=== PATIENT | male | born 1960 | race Caucasian/White ===

== ENCOUNTER → 2016-04-11 | Outpatient (CLI) | payer BC ==
[~2016-04-11] VITALS: Ht 177.8 cm; Wt 108.9 kg
[~2016-04-11] MED LIST: ALLOPURINOL 10100 M1 PO; AMBIEN 10 MG TA10 MG PO; ANDROGEL1.25 GM TOP; B-100 COMPLEX1 EAC1 PO; BACLOFEN 10MG T10 MG PO; BYSTOLIC 5 MG5 M1 PO; BYSTOLIC10 MG PO; CELEBREX 200 M200 M1 PO; CLONAZEPAM 1 MG1 M1 PO; CLONAZEPAM PO; CO Q-1010 MG PO; COLCHICINE 0.60.6 M1 PO; COLCRYS PO; CRESTOR5 MG PO; EXFORGE PO; FISH OIL 1,0001 EAC5 PO; HYDROCODON-ACE1 EAC7 PO; HYDROCODON-ACE1 EAC8 PO; HYDROCODONE-AP1 EA11 PO; HYDROCODONE-AP1 EAC6 PO; IBUPROFEN 200200 M1 PO; LAMICTAL 25 MG25 M1 PO; LIMBREL 500 MG500 MG PO; LISINOPRIL10 MG PO; LOVAZA1000 MG PO; METHADONE HCL 110 M1 PO; MS CONTIN15 MG PO; NEURONTIN 300300 M1 PO; NORTRIPTYLINE H25 M3 GT; NORTRIPTYLINE H25 M3 PO; NORTRIPTYLINE H50 MG PO; NUCYNTA ER50 MG PO; OXYCODONE HCL15 MG PO; OXYCONTIN15 MG PO; OXYCONTIN20 MG PO; OXYCONTIN30 MG PO; PERCOCET 10-321 EACH PO; PERCOCET 7.5-31 EACH PO; PREDNISONE 5 MG5 M1 PO; REQUIP 1 MG TABL1 M1 PO; ROXICODONE5 M1 PO; ROXICODONE5 MG PO; TRILIPIX135 MG PO; TYLENOL EX-STR500 M2 PO; VERAPAMIL E.R240 M1 PO; VERAPAMIL ER240 MG PO; ZETIA10 MG PO
--- NOTE | ~2016-04-11 | HPC ---
[facility] [address] [place] [address] PAIN MANAGEMENT CONSULTATION Name: JASON NICOLAS [id number] Admission: 04/11/16 Attend Phys: Mike Lundberg DO Discharge: Date of : 56 Report #: [id number] THIS REPORT FOR: //name// CC: Maynor Lundberg DATE OF SERVICE: 04/11/2016 CHIEF COMPLAINT: Generalized joint pain. HISTORY OF PRESENT ILLNESS: As you know, the patient is a 55-year-old male with generalized joint pain, taking prednisone, and gaining weight rapidly. He has added approximately 18-20 pounds of weight since he started prednisone therapy. Even with his prednisone therapy, his pain remained at the level of 7/10. States his pain is exacerbated with climbing stairs, sitting, standing, walking, and doing any activities. Improves with medications, heat, cold compresses. He is complaining mainly of left knee pain, though he has been evaluated by Orthopedics, and there is no pathology that is surgical. It was noted that the patient's right knee is becoming deteriorated quite quickly, and they did offer a possible arthroscopic surgery on the right knee for pathology found there, but unfortunately left knee pathology is minor. He returns today in followup visit for medication management. He is somewhat upset with his rheumatology team, as they have been unable to find the solution for his problems. He returns today for medication management. ALLERGIES: AMLODIPINE, LOVASTATIN, PENICILLIN, and VALSARTAN. CURRENT MEDICATIONS: OxyContin, oxycodone, clonazepam, prednisone, Bystolic, omega 3 fish oil. SOCIAL HISTORY: The patient denies tobacco. He is a reformed smoker, quit in 1997. Denies IV or illicit drug use. Denies any chronic alcohol use. He is unaccompanied today. PHYSICAL EXAMINATION: VITAL SIGNS: Blood pressure 158/92, pulse of 60, respiratory rate 18 and unlabored. The patient is 96% on room air. Height 5 feet 10 inches tall, weight 240 pounds, BMI calculated 34.4. GENERAL: Well-developed, well nourished, and well hydrated. Morbidly obese 55-year-old male appearing his stated age. Pain is rated at 7/10. HEENT: Normocephalic and atraumatic. Pupils are equal, round, and reactive to light. EXTREMITIES: Show no clubbing, no cyanosis, no edema. MUSCULOSKELETAL: There are no gross deformities of the joints of the hands, wrists, elbows, ankles, or knees. Bilateral knee tenderness greater on the left. Active and passive range of motion of the left knee causes [address] [address] PAIN MANAGEMENT CONSULTATION Name: JASON NICOLAS Quirino Room #: REG [facility] Elías#: [id number] Admission: 04/11/16 Attend Phys: iMke Lundberg DO Discharge: Date of : 56 Report #: [id number] intensification of pain. Gait antalgic favoring the left lower extremity over right. ASSESSMENT: 1. Generalized arthritides. 2. Generalized myalgias. 3. Bilateral knee pain, left greater than right. 4. Chronic intractable pain. PLAN: 1. The patient has returned today in followup visit, indicating he has been experiencing more pain of late. He states that the prednisone therapy has caused an 18-20 pound weight gain, and this is exacerbating his symptoms. I have discussed this with the patient today, and advised him to return to see Dr. Harrington. If he is unhappy with Dr. Harrington's care, then I would recommend the patient be referred to [facility]. I have advised the patient to contact Dr. Vilchis in regards to this referral for [facility] evaluation for this generalized arthritides. The patient does not appear to be improving. He has been diagnosed with multiple disease processes. None of which have been responsive to treatment, and none have been able to be improving directly. I would recommend a full evaluation from the [facility] to be performed. This will at least give the patient a chance to gain some improvement in symptoms, and possibly even a diagnosis. We will defer to the primary team for the referral to the [facility] if they wish to do so. He has seen rheumatology at as well. They had advised him to return in 8 months, but gave him no direction for treatment. 2. The patient has requested refills on medications. As you are aware, [facility] has regulations in regards to opioid management. He is currently at 120 morphine equivalents a day over the 90 morphine equivalent dosing. We will continue him from the next 3 months, but the plan is to then begin weaning to meet the CDC guidelines. The patient was advised today that to meet these guidelines. We are reducing his dose to the OxyContin twice a day, or reducing OxyContin and allowing for some oxycodone, but he would have to comply with the CDC regulations, as soon as possible. 3. The patient was provided a prescription of OxyContin 30 mg dose one tab p.o. b.i.d., #60, releases of today, 4 weeks from today, and 8 weeks from today. 4. The patient was provided a prescription of oxycodone 5 mg dose 1 tab p.o. q. 6 hours p.r.n., #120, releases of today, 4 weeks from today, and 8 weeks from today. 3 months' worth of medication. 5. The patient indicates he received a medication in sample form from Dr. Harrington, the other day. Dr. Harrington indicated that the medication that was being provided "turns off pain signals". The patient is unable to voice the name of the drug. He does remember that it starts at approximately 25 mg dose. He will contact our clinic, once he goes home before initiating this medications. so we can discuss whether or not this is an agent that would be effective for treatment, and is not having any side effects with his other medications. I have advised [address] [address] PAIN MANAGEMENT CONSULTATION Name: JASON NICOLAS Room #: REG [facility]#: [id number] Admission: 04/11/16 Attend Phys: Mike Lundberg DO Discharge: Date of : 56 Report #: [id number] the patient at this time not to take the medication until he contacts either our clinic or Dr. Vilchis's clinic in regards to this medication. 6. We will see the patient back in followup visit in 3 months. Again, we suggest strongly the patient to see [facility] for evaluation. I believe his arthritides is such that it needs a further workup in a more concerted effort at determining the source of his symptoms. <ELECTRONICALLY SIGNED> By: Mike Lundberg DO 04/23/16 0805 [id number] Mike Lundberg DO /elder
[2016-04-11 09:03] VITALS: BP 158/92
== END | disposition home or self-care (01) ==
LOC: PAIN 07:05
DX: M19.90 Unspecified osteoarthritis, unspecified site (principal); M79.1 Myalgia; M25.561 Pain in right knee; M25.562 Pain in left knee; G89.29 Other chronic pain; Z87.891 Personal history of nicotine dependence

== ENCOUNTER → 2016-07-03 | Outpatient (CLI) | payer BC ==
[~2016-07-03] VITALS: Ht 180.3 cm; Wt 112.8 kg
--- NOTE | ~2016-07-03 | HPC ---
[facility] [address] [address] PAIN MANAGEMENT CONSULTATION Name: JASON NICOLAS Room #: REG [facility].#: [id number] Admission: 07/03/16 Attend Phys: Mike Lundberg DO Discharge: Date of : 56 Report #: [id number] THIS REPORT FOR: //name// CC: Maynor Parson DATE OF SERVICE: 07/03/2016 REFERRING PHYSICIAN: Maynor Vilchis DO CHIEF COMPLAINT: Bilateral lower extremity pain, bilateral knee pain. HISTORY OF PRESENT ILLNESS: As you know, patient is a 56-year-old male who returns today in followup visit for medication management. He continues on prednisone therapy for suspected rheumatologic issues. He is noticing some improvement in his bilateral hand pain, but has not noticed much in the way of improvement in his bilateral knee pain. He returns today in followup visit for medication management. He states he has been recently started amitriptyline for which the patient was on this in 2010 and failed due to lack of efficacy and side effects he could not tolerate. The patient states he felt it provided some improvement in symptoms for 3 days. Then, he discontinued as the improvement dissipated. He returns today for medication management. ALLERGIES: AMLODIPINE, LOVASTATIN, PENICILLIN, VALSARTAN. CURRENT MEDICATIONS: Oxycodone 5 mg every 6 hours p.r.n. for pain, OxyContin 30 mg twice a day, clonazepam 1 mg 1-2 tabs p.o. at bedtime, prednisone 10 mg per day, Bystolic 5 mg per day, omega-3 fish oil 1 tab per day. SOCIAL HISTORY: The patient denies tobacco. He is a former smoker, quit in 1997. Denies IV or illicit drug use. Denies any chronic alcohol use. He is working, not receiving workmen's compensation. He is unaccompanied today. IMAGING: No new imaging available. PHYSICAL EXAMINATION: VITAL SIGNS: Blood pressure 172/114, pulse is 60, respiratory rate 14, unlabored. The patient is 94% on room air. Height 5 feet 11 inches tall, weight 248.6 pounds, BMI calculated 34.7. GENERAL: Well-developed, well-nourished, well-hydrated, morbidly obese 56-year-old male appearing his stated age. He is placing pain score today at approximately 7/10. HEENT: Normocephalic, atraumatic. Pupils are equal, round, reactive to light. Extraocular muscles are intact. Sclerae are nonicteric without injection. EXTREMITIES: Show no clubbing, no cyanosis, no edema. [address] [address] PAIN MANAGEMENT CONSULTATION Name: JASON NICOLAS Room #: REG [facility]#: [id number] Admission: 07/03/16 Attend Phys: Mike Lundberg DO Discharge: Date of : 56 Report #: [id number] MUSCULOSKELETAL: Hands appear normal today, there is no edema, no swelling noted. There is palpatory tenderness over the bilateral knees, but no swelling noted. Active and passive range of motion causes intensification of knees, left greater than right. Gait slightly antalgic favoring left lower extremity over right. ASSESSMENT: 1. Generalized . 2. Generalized myalgias. 3. Bilateral knee pain. 4. Chronic intractable pain. PLAN: 1. The patient returns today in followup visit for continuation of medication therapy. He states the OxyContin and oxycodone combination is working well for pain control even though he is reporting pain score 7/10. He states that activities at work exacerbate his symptoms, but he is doing fairly well overall. He has questions for Dr. Andrew Harrington about the prednisone therapy, also about his amitriptyline therapy. I did call the patient's attention to the amitriptyline we started in 2010 and side effects he experienced and the lack of efficacy. He will discuss this with Dr. Harrington. I initiated that medication in hopes of improving pain from a neuropathic standpoint. This provided no improvement, but side effects were fairly profound including palpitations and severe diaphoresis. The patient has subsequently stopped the Elavil apparently earlier this week. He should contact Dr. Harrington about the medication and the side effects he experienced in 2010. 2. The patient was provided prescription of OxyContin 30 mg dose 1 tab p.o. b.i.d. I have given the patient #60, releases of today, 4 weeks from today, 8 weeks from today, 3 months' worth of medication. 3. The patient was provided prescription of oxycodone 5 mg dose 1 tab p.o. q. 6 hours p.r.n. for pain, #120, releases of today, 4 weeks from today, 8 weeks from today. 4. The patient was provided a refill prescription of clonazepam 1 mg dose 1-2 tabs p.o. at bedtime, given #30 tablets with 2 refills. 5. We will see the patient back in followup visit in 3 months for medication management, earlier if interventional treatments are requested. By: [id number] Mike Lundberg DO /nt
[2016-07-03 12:44] VITALS: BP 172/114
== END ==
LOC: PAIN 07:05
DX: M79.662 Pain in left lower leg (principal); M79.661 Pain in right lower leg; M25.562 Pain in left knee; M25.561 Pain in right knee; Z87.891 Personal history of nicotine dependence; E66.01 Morbid (severe) obesity due to excess calories; Z68.34 Body mass index [BMI] 34.0-34.9, adult; I10 Essential (primary) hypertension

== ENCOUNTER → 2016-09-25 | Outpatient (CLI) | payer BC ==
[~2016-09-25] VITALS: Ht 180.3 cm; Wt 115.7 kg
[~2016-09-25] MED LIST changes: +AMITRIPTYLINE H25 M2 PO; +ZOLPIDEM TARTRA10 MG PO
[2016-09-25 11:06] VITALS: BP 154/94
== END | disposition home or self-care (01) ==
LOC: PAIN 07:23
DX: M79.1 Myalgia (principal); M25.50 Pain in unspecified joint; M25.561 Pain in right knee; M25.562 Pain in left knee; F41.8 Other specified anxiety disorders; G89.29 Other chronic pain; Z87.891 Personal history of nicotine dependence; Z88.0 Allergy status to penicillin; Z88.8 Allergy status to other drugs, medicaments and biological substances

== ENCOUNTER → 2016-12-18 | Outpatient (CLI) | payer BC ==
[~2016-12-18] VITALS: Ht 180.3 cm; Wt 119.3 kg
--- NOTE | ~2016-12-18 | HPC ---
[facility] [address] PAIN MANAGEMENT CONSULTATION Name: JASON NICOLAS Room #: REG [facility] MGurwinder.#: [id number] Admission: 12/18/16 Attend Phys: Mike Lundberg DO Discharge: Date of : 56 Report #: [id number] THIS REPORT FOR: //name// CC: Maynor Allen DO DATE OF SERVICE: 12/18/2016 REFERRING PHYSICIAN: Mike Allen DO CHIEF COMPLAINT: Generalized body pain. HISTORY OF PRESENT ILLNESS: As you know, the patient is a 56-year-old male, who suffers from generalized arthralgias and myalgias, bilateral knee pain and chronic intractable symptoms, radiating throughout his body. He returns today in followup visit, indicating he has new appointment with a equipment driver for a second opinion. He continues to take steroid medication, but they have been attempting to wean off this therapy. He notes increased swelling and pain when he is off the steroids themselves. He returns today, requesting refill on medications with no changes in therapy necessary. He denies any changes in medical history. Denies any new medications at this visit. ALLERGIES: AMLODIPINE, LOVASTATIN, PENICILLIN, VALSARTAN. CURRENT MEDICATIONS: OxyContin 30 mg twice a day, oxycodone 5 mg every 6 hours p.r.n. for pain, clonazepam 1 mg per day, zolpidem 10 mg p.o. at bedtime, lisinopril 10 mg per day, amitriptyline 25 mg p.o. at bedtime, prednisone 5 mg per day, Bystolic 5 mg per day, omega-3 fish oil 1 tab per day. SOCIAL HISTORY: The patient denies tobacco, alcohol, IV or illicit drug use. He is working, not receiving workmen's compensation, unaccompanied today. IMAGING: No new imaging available. PHYSICAL EXAMINATION: VITAL SIGNS: Blood pressure 181/95, pulse 68, respiratory rate 16 and unlabored. The patient is 98% on room air. Height 5 feet 11 inches tall, weight 263 pounds, BMI calculated 36.7. GENERAL: Well-developed, well-nourished, well-hydrated, morbidly obese 56-year-old male. He appears his stated age. He is awake, alert and oriented x 3. Current pain score 7-8/10. HEENT: Normocephalic, atraumatic. Pupils equal, round, reactive to light. Extraocular muscles are intact. EXTREMITIES: Show no clubbing, no cyanosis, no edema. MUSCULOSKELETAL: Lower extremity strength appears equal and symmetrical 5/5, [address] [address] PAIN MANAGEMENT CONSULTATION Name: JASON NICOLAS Room #: REG [facility].#: [id number] Admission: 12/18/16 Attend Phys: Mike Lundberg DO Discharge: Date of : 56 Report #: [id number] intact to light touch from L1 through S2 dermatomes. Active and passive range of motion of the shoulders, the elbows, the knees are all met with increasing pain. There is noted generalized edema and swelling. ASSESSMENT: 1. Generalized arthralgias. 2. Generalized myalgias. 3. Bilateral knee pain. 4. Chronic intractable pain. PLAN: 1. The patient returns today in followup visit, indicating that he has an appointment with the new equipment driver this week. He is hopeful to begin a workup for evaluation and treatment for suspected rheumatologic issues. He indicates today he has returned for a refill of medications. He is denying any side effects to therapy and does feel the medications are beneficial. He indicates that without the medications, he would not be able to complete his daily work. He returns, requesting refills on medication. 2. The patient was provided a prescription of OxyContin 30 mg dose 1 tab p.o. b.i.d. I have given the patient #60, releases of today, 4 weeks from today, 8 weeks from today. 3. The patient was provided a prescription of oxycodone 5 mg dose 1 tab every 6 hours p.r.n. for pain, #120, releases of today, 4 weeks from today, 8 weeks from today. 4. The patient was provided a prescription of clonazepam 1 mg dose 1 tab p.o. at bedtime, #30, two refills. 5. The patient to return to our clinic in 3 months for medication therapy, otherwise earlier if changes in treatment need to be addressed based on findings from the rheumatology evaluation. <ELECTRONICALLY SIGNED> By: Mike Lundberg DO 12/26/16 0806 0707 0744 Mike Lundberg DO /nt
[2016-12-18 10:24] VITALS: BP 181/95
== END | disposition home or self-care (01) ==
LOC: PAIN 07:13
DX: Z76.0 Encounter for issue of repeat prescription (principal); M79.1 Myalgia; M25.561 Pain in right knee; M25.562 Pain in left knee; G89.29 Other chronic pain; Z88.0 Allergy status to penicillin; Z88.8 Allergy status to other drugs, medicaments and biological substances; Z88.3 Allergy status to other anti-infective agents; Z79.899 Other long term (current) drug therapy; Z87.891 Personal history of nicotine dependence

== ENCOUNTER → 2017-03-05 | Outpatient (CLI) | payer BC ==
[~2017-03-05] VITALS: Ht 180.3 cm; Wt 116.4 kg
--- NOTE | ~2017-03-05 | HPC ---
[facility] [address] [address] PAIN MANAGEMENT CONSULTATION Name: JASON NICOLAS Room #: REG [facility].#: [id number] Admission: 03/05/17 Attend Phys: Mike Lundberg DO Discharge: Date of : 56 Report #: [id number] THIS REPORT FOR: //name// CC: Maynor Parson DATE OF SERVICE: 03/05/2017 Referring physician: Maynor Vilchis DO CHIEF COMPLAINT: Generalized body pain and swelling. HISTORY OF PRESENT ILLNESS: As you know, the patient is a 56-year-old male suffering from generalized arthralgias and myalgias, bilateral knee pain and chronic low back pain. He indicates pain is involving now his entire body, but tends to localize within the joints that are weightbearing. He returns today in followup visit for medication management. He indicates pain level of a 6/10, states pain is aching and chronic in nature, exacerbated with climbing stairs, climbing ladders, activities, working, and walking; improves with medications only. There has been no clear definitive diagnosis for the patient's ongoing symptoms. He returns today for medication management indicating they are working well. ALLERGIES: AMLODIPINE, LOVASTATIN, PENICILLIN, and VALSARTAN. CURRENT MEDICATIONS: OxyContin 30 mg twice a day, oxycodone 5 mg every 6 hours p.r.n. pain, clonazepam 1 mg p.o. every day, zolpidem 10 mg p.o. at bedtime, lisinopril 10 mg per day, amitriptyline 25 mg p.o. at bedtime, prednisone 5 mg per day, Bystolic 5 mg per day, omega-3 fish oil 1 tab per day. SOCIAL HISTORY: The patient denies tobacco, alcohol, IV or illicit drug use. He is working, not receiving workmen's compensation, unaccompanied today. IMAGING: No new imaging available. PHYSICAL EXAMINATION: VITAL SIGNS: Blood pressure 123/72, pulse 57, respiratory rate 16, unlabored. The patient is 97% on room air. Height 5 feet 11 inches tall, weight 256.6 pounds, BMI calculated 35.8. GENERAL: Well-developed, well-nourished, well-hydrated, morbidly obese 56-year-old male appearing stated age, placing current pain score 6/10. HEENT: Normocephalic, atraumatic. Pupils equal, round, reactive to light. Extraocular muscles are intact. EXTREMITIES: Show no clubbing, no cyanosis, no edema. MUSCULOSKELETAL: Lower extremity strength appears equal and symmetrical 5/5, [address] [address] PAIN MANAGEMENT CONSULTATION Name: JASON NICOLAS Room #: REG [facility] M..#: [id number] Admission: 03/05/17 Attend Phys: Mike Lundberg DO Discharge: Date of : 56 Report #: [id number] muscle bulk and tone is equal and symmetrical. There is no swelling over the knees, ankles or hips today, hands appear normal. ASSESSMENT: 1. Generalized arthralgias. 2. Generalized myalgias. 3. Bilateral knee pain and swelling. 4. Chronic intractable pain. PLAN: 1. The patient returns today in followup visit for medication management. The patient feels medications are working beneficially for pain control despite the elevated pain level of 6/10 today. The patient returns requesting refill of medication. He states he is continuing to follow up with rheumatology for possible rheumatologic issues. No definitive diagnosis has been made to date. He will continue with rheumatology and advised if any changes in therapy or treatment options do occur. 2. The patient was provided prescription of OxyContin 30 mg dose 1 tab p.o. b.i.d., #60, releases of today, 4 weeks from today, 8 weeks from today, 3 months' worth of medication. The patient was advised that 30 mg b.i.d., 60 mg total, equals 90 mg morphine equivalents, the top dose CDC recommends for treatment guidelines. He is over the CDC dosing with the oxycodone, we will have to adjust at our next visit. 3. The patient was provided prescription of oxycodone 5 mg dose 1 tab every 6 hours, #120, releases of today, 4 weeks from today, 8 weeks from today, 3 months' worth of medication. The patient was provided this medication. We will have to discontinue at our next visit as he is over CDC's recommended guidelines of 90 morphine equivalents a day with his OxyContin b.i.d. dose as indicated above. 4. The patient was provided prescription of clonazepam 1 mg dose 1 tab p.o. at bedtime. He was given #30 with 2 refills. The patient uses this for muscle spasming in the evening hours, appears to be working well. 5. We will see the patient back in followup visit in 3 months where we will adjust to CDC guidelines for the 90 morphine equivalents or less. <ELECTRONICALLY SIGNED> By: Mike Lundberg DO 03/06/17 1219 [id number] Mike Lundberg DO /nt
[2017-03-05 09:55] VITALS: BP 123/72
== END ==
LOC: PAIN 06:44
DX: M54.5 Low back pain (principal); M25.561 Pain in right knee; G89.29 Other chronic pain; M79.1 Myalgia

== ENCOUNTER → 2017-06-04 | Outpatient (CLI) | payer OTHER ==
[~2017-06-04] VITALS: Ht 180.3 cm; Wt 116.8 kg
--- NOTE | ~2017-06-04 | HPC ---
[facility] [place] [address] PAIN MANAGEMENT CONSULTATION Name: JASON NICOLAS Room #: REG [facility].#: [id number] Admission: 06/04/17 Attend Phys: Mike Lundberg DO Discharge: Date of : 56 Report #: [id number] THIS REPORT FOR: //name// CC: Mayonr Parson CHIEF COMPLAINT: Generalized body pain. HISTORY OF PRESENT ILLNESS: As you know, the patient is a 57-year-old male suffering from generalized arthralgias, myalgias, bilateral knee pain, chronic low back pain. He returns today in followup visit stating that his rheumatologic evaluation continues. He has requested refill on medications as they have yet to find the specific etiology for his symptoms. He indicates generalized body pain and significant swelling of the knees and periodically ankles with activity. No specific findings from a physiologic standpoint or rheumatologic standpoint have been made to determine the source. He returns requesting medication management. States medications are working beneficially despite the elevated pain level of 7/10 today. The patient indicates pain is exacerbated with stairs, standing, activities, working, walking; improves with medication. He returns for medication refills. ALLERGIES: AMLODIPINE, LOVASTATIN, PENICILLIN, VALSARTAN. CURRENT MEDICATIONS: OxyContin 30 mg twice a day, oxycodone 5 mg every 6 hours p.r.n., clonazepam 1 mg p.o. q. day, zolpidem 10 mg p.o. at bedtime, lisinopril 10 mg per day, amitriptyline 25 mg p.o. at bedtime, prednisone 5 mg per day, Bystolic 5 mg per day, omega-3 fish oil 1 tab per day. SOCIAL HISTORY: The patient denies tobacco, alcohol, IV or illicit drug use. He is working, not receiving workmen's compensation, unaccompanied today. IMAGING: No new imaging available. PHYSICAL EXAMINATION: VITAL SIGNS: Blood pressure 144/79, pulse is 66, respiratory rate 18, unlabored. The patient is 96% on room air. Height 5 feet 11 inches tall, weight 257.6 pounds, BMI calculated 35.9. GENERAL: Well-developed, well-nourished, well-hydrated, morbidly obese 57-year-old male appearing stated age, placing pain score today 7/10. HEENT: Normocephalic, atraumatic. Pupils equal, round, reactive to light. EXTREMITIES: Show no clubbing, no cyanosis, no edema. MUSCULOSKELETAL: Upper extremity strength, lower extremity strength is symmetrical 5/5. There is no noted swelling, no erythema around the joints. No joint destruction noted in the hands, elbows or wrists. No destructive joint processes noted or gross abnormalities of the knees and ankles. [address] [address] PAIN MANAGEMENT CONSULTATION Name: JASON NICOLAS Room #: REG [facility]#: [id number] Admission: 06/04/17 Attend Phys: Mike Lundberg DO Discharge: Date of : 56 Report #: [id number] ASSESSMENT: 1. Generalized arthralgia, not otherwise specified. 2. Generalized myalgia, not otherwise specified. 3. Bilateral knee pain and swelling, not otherwise specified. 4. Chronic intractable pain. PLAN: 1. The patient returns today in followup visit requesting refill on medications. We have had a long discussion today about opioid medications for long-term therapy. At present, the patient is taking essentially the highest dose, possible the CDC guidelines would require for chronic pain issues. I have advised the patient at this time, there is a strong possibility that we will be having to reduce these medications further to comply with CDC's regulations. There has been information provided that indicates the guidelines may be once again adjusted to a lower dose from a 90 morphine equivalents per day to a 50 morphine equivalents a day, which would be essentially a 50% reduction in opioids. I have advised the patient that we will remain compliant with CDC's guidelines. At present, we will continue the patient on current dosing with the caveat that once the adjustments in guidelines have been made, we will be adjusting his medications appropriately. 2. I have advised the patient to return to see Rheumatology; I believe further evaluation needs to be addressed. The patient states he has completed most of the testing studies, but I do recommend the patient follow up further, possible referral to [facility] for evaluation might be warranted. I will defer to the Rheumatology team. 3. The patient was provided a prescription of OxyContin 30 mg dose 1 tab p.o. b.i.d., #60, releases of today, 4 weeks from today, 8 weeks from today, 3 months' worth of medication. This equals in the 90 morphine equivalent maximum the patient can take on a daily basis. 4. The patient was provided a prescription of oxycodone 5 mg 1 tab p.o. q.6 hours p.r.n. for pain, #120, releases of today, 4 weeks from today, 8 weeks from today. I have advised the patient that the oxycodone 5 mg dose will ultimately have to be discontinued due to the CDC's regulations of remaining below 90 morphine equivalents a day. The combination of OxyContin with this oxycodone dose equals 120 morphine equivalents a day well over the CDC's recommended guidelines and we will need to adjust at our next visit. We are hopeful that they have not dropped their dose further. It was advised of such today; he is to begin weaning off the oxycodone in preparation for reduction in dosing. 5. The patient was provided a prescription of clonazepam 1 mg dose 1 tab p.o. at bedtime, #30, releases of today, 4 weeks from today, 8 weeks from today. 6. The patient will return to our clinic in 3 months. At that time, we will adjust the CDC's new recommended guidelines by reducing the patient's dose to less than 90 morphine equivalents a day and once this has been altered further [address] [address] PAIN MANAGEMENT CONSULTATION Name: JASON NICOLAS Quirino Room #: REG [facility] Elías#: [id number] Admission: 06/04/17 Attend Phys: Mike Lundberg DO Discharge: Date of : 56 Report #: [id number] which a strong possibility is that it may be reduced to 50 morphine equivalents which at that time will have to adjust even further. <ELECTRONICALLY SIGNED> By: Mike Lundberg DO 06/12/17 0736 [id number] 0927 Mike Lundberg DO /nt
[2017-06-04 10:27] VITALS: BP 144/79
== END ==
LOC: PAIN 07:01
DX: M54.5 Low back pain (principal); M25.561 Pain in right knee; M25.562 Pain in left knee; G89.4 Chronic pain syndrome

== ENCOUNTER → 2017-08-20 | Outpatient (CLI) | payer OTHER ==
[~2017-08-20] VITALS: Ht 182.9 cm; Wt 119.8 kg
[~2017-08-20] MED LIST changes: +DIPHENHIST50 MG PO
--- NOTE | ~2017-08-20 | HPC ---
[facility] [place] [address] [place] [address] PAIN MANAGEMENT CONSULTATION Name: JASON NICOLAS Room #: REG [facility].#: [id number] Admission: 08/20/17 Attend Phys: Mike Lundberg DO Discharge: Date of : 56 Report #: [id number] THIS REPORT FOR: //name// CC: Maynor Parson DATE OF SERVICE: 08/20/2017 REFERRING PHYSICIAN: Maynor Vilchis D.O. CHIEF COMPLAINT: Generalized body pain and generalized weightbearing arthritis pain. HISTORY OF PRESENT ILLNESS: As you know, the patient is a 57-year-old male, returning in followup visit with generalized myalgias, arthralgias, bilateral knee pain and chronic low back pain. He indicates pain is now at a level of 7/10. The patient follows with his center mgr but has noted no improvement in symptoms with variable medication treatments. He continues to require opioid medication at a very high dose. He returns requesting refills on the medication. The patient indicates he recently underwent bilateral knee injections with Dr. Harrington, his center mgr with no improvement in his knee pain. He reports an overall body rash that began directly after the injection and has progressed. He has been advised to take Benadryl. He has returned today in followup visit for refill of medications and continue what analgesic benefit he receives from his high dose opioid medication. ALLERGIES: AMLODIPINE, LOVASTATIN, PENICILLIN and VALSARTAN. CURRENT MEDICATIONS: OxyContin 30 mg twice a day, oxycodone 5 mg every 6 hours, clonazepam 1 mg p.o. at bedtime, zolpidem 10 mg p.o. at bedtime, lisinopril 10 mg per day, amitriptyline 25 mg per day, prednisone 5 mg per day, Bystolic 5 mg per day and omega-3 fish oil 1 tab per day. SOCIAL HISTORY: The patient denies tobacco, alcohol or IV or illicit drug use. He continues to work, not receiving workmen's compensation, unaccompanied today. IMAGING DATA: No new imaging available. PHYSICAL EXAMINATION: VITAL SIGNS: Blood pressure 144/90, pulse is 68 and respiratory rate 18 and unlabored. The patient is 97% on room air, height 6 feet tall, weight 264 pounds and BMI calculated 35.8. GENERAL: Well-developed, well-nourished, well-hydrated exogenously obese 57-year-old male appearing stated age, placing current pain score 7/10. HEENT: Normocephalic and atraumatic. Pupils equal, [place] [address] PAIN MANAGEMENT CONSULTATION Name: JASON NICOLAS Room #: REG [facility]#: [id number] Admission: 08/20/17 Attend Phys: Mike Lundberg DO Discharge: Date of : 56 Report #: [id number] light. Extraocular muscles are intact. EXTREMITIES: Show no clubbing, no cyanosis and no edema. MUSCULOSKELETAL: Lower extremity strength is equal and symmetrical 5/5. There is no noted swelling, erythema around any of the joints. No gross joint destruction noted in the hands, elbows, wrists, knees or ankles. He is tender to palpation generally at 18/18 tender points. ASSESSMENT: 1. Generalized arthralgia. 2. Generalized myalgia. 3. Bilateral knee pain. 4. Chronic intractable pain. PLAN: 1. The patient returns today in followup visit indicating continued generalized joint pain and myalgias. The patient has been evaluated by his center mgr and trials of medications have been completed with no efficacy. He continues on prednisone therapy for which he is reporting increasing weight, which is obvious today. The patient has increased weight significantly since our initial visits. The patient at our initial visit had a weight of 210 pounds. His weight now 264 pounds. Apparently from a rheumatologic standpoint, no specific notable pathology has been determined. I discussed with the patient the possibility of seeking other evaluations. He apparently made contact with [facility] but was advised he could take anywhere from 6-8 months to be seen in the Rheumatology system. I have recommended the patient to discuss with his PCP the possibility of referral to the [facility]. The patient has been unable to determine the source of his generalized pain. Continues to take high dose opioids and continues to take steroids. Despite all these interventions and changing medications in other forms, he has not noted improvement and a possible referral for [facility] would be recommended from our standpoint. We recommend the patient discussed this with his PCP as I do feel this is an appropriate referral. 2. The patient and I had a very long discussion about opioid medications. At present, he is taking 60 mg OxyContin equating to 90 morphine equivalents a day along with oxycodone 5 mg 3 times a day over the CDC recommended guidelines for chronic opioid therapy. It is our desire that we ultimately begin to reduce the patient's opioid medication to a more manageable level as he will not be able to sustain this level of medication long-term. He wishes to complete his workup before making adjustments in therapy if at all possible. I have advised the patient we will continue him for the next 3 months with the understanding that in 3 months, we will be compliant with CDC's recommended guidelines reducing his dose further. 3. The patient was provided a prescription of OxyContin 30 mg dose 1 tab p.o. b.i.d., #60, releases of today, 4 weeks from today, 8 weeks from today and 3 months' worth of medication. 4. The patient was provided prescription of oxycodone 5 mg dose 1 tab p.o. [facility] [address] [place] [address] PAIN MANAGEMENT CONSULTATION Name: FIDENCIOJASON L Room #: REG [facility].#: [id number] Admission: 08/20/17 Attend Phys: Mike Lundberg DO Discharge: Date of : 56 Report #: [id number] q.i.d., #120, releases of today, 4 weeks from today, 8 weeks from today and 3 months' worth of medication. 5. The patient was provided prescription for clonazepam 1 mg dose 1 tab p.o. at bedtime, #30, two refills. 6. The patient will return to our clinic in 3 months for adjustments in his medication to reduce his dose to below the CDC's recommended guidelines. <ELECTRONICALLY SIGNED> By: Mike Lundberg DO 08/21/17 0804 1420 2141 Mike Lundberg DO /nt
[2017-08-20 10:41] VITALS: BP 144/90
== END ==
LOC: PAIN 06:36
DX: M13.80 Other specified arthritis, unspecified site (principal); M79.1 Myalgia; M25.562 Pain in left knee; M25.561 Pain in right knee; Z79.899 Other long term (current) drug therapy

== ENCOUNTER → 2018-02-18 | Outpatient (CLI) | payer OTHER ==
[~2018-02-18] VITALS: Ht 180.3 cm; Wt 118.9 kg
[~2018-02-18] MED LIST changes: +OXYCONTIN20 M1 PO
--- NOTE | ~2018-02-18 | HPC ---
[facility] [address] [address] PAIN MANAGEMENT CONSULTATION Name: JASON NICOLAS Room #: REG [facility].#: [id number] Admission: 02/18/18 Attend Phys: Mike Lundberg DO Discharge: Date of : 56 Report #: [id number] THIS REPORT FOR: //name// CC: Maynor Nettles DATE OF SERVICE: 02/18/2018 REFERRING PHYSICIAN: Maynor Vilchis DO. CHIEF COMPLAINT: Generalized body pain, generalized weightbearing arthritic pain. HISTORY OF PRESENT ILLNESS: As you know, the patient is a 57-year-old male with long-standing history of generalized myalgias and arthralgias involving bilateral knees and chronic low back distribution. He is placing today's pain score at around 8-9/10. He states that he has recently been evaluated by a foster care case manager, who made some adjustments in medication, but apparently this has not been effective. The patient has not been back to see the foster care case manager. He returns today in followup visit for medication management. He indicates that despite the 120 morphine equivalents a day, well over the CDC's recommended guidelines for opioid medications, he is still experiencing pain at a level of 8-9/10. He denies side effects to the therapy at this time. He wishes refill of medications despite the fact that he is indicating no improvement in symptoms with the therapy. ALLERGIES: AMLODIPINE, LOVASTATIN, PENICILLIN AND VALSARTAN. CURRENT MEDICATIONS: OxyContin 30 mg twice a day, oxycodone 5 mg every 6 hours p.r.n. pain, clonazepam 1 mg p.o. at bedtime, zolpidem 10 mg p.o. at bedtime, lisinopril 10 mg per day, amitriptyline 25 mg once a day, prednisone 5 mg per day, Bystolic 5 mg per day and [place]-3 fish oil 1 tab per day. SOCIAL HISTORY: The patient denies tobacco, alcohol, IV or illicit drug use. He is working, unaccompanied today. IMAGING: No new imaging available. PHYSICAL EXAMINATION: VITAL SIGNS: Blood pressure 162/88, pulse 80 and respiratory rate 18 and unlabored. The patient is 95% on room air. Height 5 feet 11 inches tall, weight 262.2 pounds and BMI calculated 36.6. GENERAL: Well-developed, well-nourished, well-hydrated exogenously obese 57-year-old male appearing stated age, placing current pain score at 8-9/10[place] [address] PAIN MANAGEMENT CONSULTATION Name: JASON NICOLAS Room #: REG [facility]#: [id number] Admission: 02/18/18 Attend Phys: Mike Lundberg DO Discharge: Date of : 56 Report #: [id number] HEENT: Normocephalic, atraumatic. Pupils equal, round and reactive to light. EXTREMITIES: Show no clubbing, no cyanosis and no edema. MUSCULOSKELETAL: Lower extremity strength is symmetrical 5/5. No noted swelling or erythema on the joints today. No gross deformity of the hands, elbows, wrists, knees or ankles. Tenderness to palpation noted of 18 tender points, indicative of myofascial pain. ASSESSMENT: 1. Generalized arthralgias, not otherwise specified. 2. Generalized myalgias, not otherwise specified. 3. Chronic bilateral knee pain. 4. Chronic intractable pain. 5. Opioid dependency. PLAN: 1. The patient has returned today in followup visit for medication management. Despite the fact the patient is reporting pain at 8-9/10, he states the medications are working fairly well for pain control. The patient's pain numbers have been elevated since the initiation of therapy back in 2010. The patient and I had a very long discussion today about the CDC's recommended guidelines. We have been able to provide the patient with an elevated level of opioid medication with the understanding that his symptoms would show improvement. The fact that he is not showing improvement and the recommendations of CDC indicate less than 90 morphine equivalents, we will be adjusting his medication today. Following adjustments will be made in preparation to reaching the CDC's guidelines for no more than 90 morphine equivalents a day. 2. The patient was provided prescription of OxyContin 30 mg dose 1 tab p.o. b.i.d. I have given the patient #60, releasing today, one month worth of medication. 3. The patient was provided prescription of OxyContin 20 mg dose 1 tab p.o. b.i.d., #60, releasing in 4 weeks. This will be the reduction to 60 morphine equivalents a day for baseline control. This is a reduction from 90 morphine equivalents from the OxyContin at 30 mg b.i.d. dose. 4. The patient was provided prescription of oxycodone 5 mg dose 4 times a day, given #120, releases of today, 4 weeks from today. He can use this for breakthrough pain, but is not to rely on the medication prophylactically. 5. The patient was provided prescription of clonazepam 1 mg dose 1 tab p.o. at bedtime. This is added for spasming. He was given #30 tablets, 1 refill, 2 months' worth of medication. 6. The patient will return to our clinic in April. At that time, we will discuss the continuation of medication therapy at no more than 90 morphine equivalents a day. This is [facility] [address] [place] [address] PAIN MANAGEMENT CONSULTATION Name: NAKIA NICOLASPhong Win Room #: REG [facility]#: [id number] Admission: 02/18/18 Attend Phys: Mike Lundberg DO Discharge: Date of : 56 Report #: [id number] of chronic pain. If the patient has issues with this, he can contact the [facility] directly. <ELECTRONICALLY SIGNED> By: Mike Lundberg DO 02/19/18 0855 [id number] 1301 Mike Lundberg DO /nt
[2018-02-18 10:53] VITALS: BP 162/88
== END ==
LOC: PAIN 10:33
DX: M79.10 Myalgia, unspecified site (principal); F11.23 Opioid dependence with withdrawal; M25.561 Pain in right knee; M25.562 Pain in left knee; G89.4 Chronic pain syndrome

== ENCOUNTER → 2018-04-09 | Outpatient (CLI) | payer OTHER ==
[~2018-04-09] VITALS: Ht 180.3 cm; Wt 120.3 kg
[~2018-04-09] MED LIST changes: +VOLTAREN GEL 1100 G2 TOP
[2018-04-09 10:15] VITALS: BP 152/91
--- NOTE | 2018-04-09 10:30 | NUR ---
Pain Clinic Assessment: 1. History of Osteoarthritis: KNEES History of Rheumatoid Arthritis: Not Applicable 2. Height: 5 ft. 11 in. 180.3 cm. Weight: 265.2 lb. oz. 120.294 kg. Patient's BMI: 37.0 3. Vital Signs: BP: 152/91 Pulse: 72 Resp: 20 Temp: 02 Sat: 97 ECG Mon: 4. Pain Intensity: 8-DIFFERENT THAN BEFORE 5. Fall Risk: Dizziness: N Needs help standing or walking: N Fallen in the last 3 months: N Fall risk comments: 6. Patient on Blood Thinner: None 7. History of Hypertension: Y 8. Opioid Therapy greater than 6 weeks: Y Opiate Contract Signed: 11/01/15 9. Risk Assessment Tool Provided: 0/LOW 10. Functional Assessment Tool: 47 11. Recreational Drug Use: Never Drug Type: Tobacco Use: Former Smoker Tobacco Type: Amount or Packs/day: How Many Years: Alcohol Use: No Frequency: Quant:
--- NOTE | 2018-04-10 07:40 | HPC ---
[facility] [address] [place] [address] PAIN MANAGEMENT CONSULTATION Name: JASON NICOLAS [facility]: [facility] [id number] Admission: 04/09/18 Attend Phys: Ophelia Chun Discharge: Date of : 56 Report #: [id number] THIS REPORT FOR: //name// CC: Ophelia Vilchis DATE OF SERVICE: 04/09/2018 CHIEF COMPLAINT: Generalized body pain, arthritic pain in his knees bilaterally. HISTORY OF PRESENT ILLNESS: This is a very pleasant 57-year-old gentleman with a longstanding history of generalized myalgias and arthralgias involving his bilateral knees and low back pain. Today, he complains that his knees are his worst problem of causing pain. He tells me that his pain score is at least an 8/10. He did not realize how much difference his pain would be with decreasing his OxyContin from 30 mg to 20 mg twice a day. He tells me that it has been a hard month, but he thinks that it will slowly get better and he understands the CDC guidelines of why he was needing to decrease his medications. He tells me that his pain is worse with standing, stairs and activity and weather has not been helpful. The medications are helping him at least get through his day-to-day activities as best he can. He has been having problems sleeping, but he has also run out his diclofenac gel, which does help his knee pain. He would like a refill of his medications today. ALLERGIES: AMLODIPINE, CRESTOR, PENICILLIN, VALSARTAN. CURRENT MEDICINES: OxyContin 20 mg twice a day, oxycodone 5 mg up to 4 times a day, clonazepam 1 mg p.r.n., Benadryl 50 mg at bedtime, Ambien 10 mg at bedtime, lisinopril 10 mg daily, Elavil 25 mg at bedtime, prednisone 10 mg daily, Bystolic a fourth of a 5 mg tablet daily and fish oil every day. PQRS: 1. Has osteoarthritis in his knees. Denies rheumatoid arthritis. 2. Height is 5 feet 11 inches, weight is 262 pounds, BMI is 36. 3. Vital signs: Blood pressure 162/88, pulse is 80, respirations 18, oxygen sat is 95. 4. Pain score is 8 or 9/10. 5. Fall risk: Denies dizziness, does not need help walking or standing, has not fallen in the last 3 months. 6. He is not on a blood thinner and does take hypertension medicines. 7. Opioid therapy is greater than 6 weeks; therefore an opioid signed contract is on the chart. 8. Risk assessment tool is low. His functional assessment is 47/70. 9. Recreational drug use: He denies. He is a former smoker and does not drink alcohol. I did check the prescription monitoring [place] [address] PAIN MANAGEMENT CONSULTATION Name: JASON NICOLAS Room #: REG [facility]#: [id number] Admission: 04/09/18 Attend Phys: Ophelia Chun Discharge: Date of : 56 Report #: [id number] filling appropriately with his narcotics and benzodiazepines from doctors here within the clinic. No aberrant behavior noted. The patient tells me he does safeguard his medications and there is a recent drug screen on the chart. PHYSICAL EXAMINATION: GENERAL: This is a well-developed, well-nourished, well-hydrated, exogenous obese 57-year-old, who appears his stated age, placing his pain score 8/10 today. HEENT: Normocephalic, atraumatic. Pupils equal, round and reactive to light. EXTREMITIES: No clubbing, no cyanosis, no edema. MUSCULOSKELETAL: Lower extremity strength is symmetrical 5/5. The patient complains of tenderness above and below bilateral knees. No noted swelling in his joints today. ASSESSMENT: 1. Generalized arthralgias. 2. Generalized myalgias, not otherwise specified. 3. Chronic bilateral knee pain. 4. Chronic intractable pain. 5. Opioid dependency. We reviewed the fact that opiate medications are being used to provide analgesia adequate to support activities of daily living, not attempting to achieve a specific pain score on the 0-10 Visual Analog Scale. The current opiate medications are providing sufficient analgesia to allow the patient to participate in activities of daily living. The patient is not exhibiting any aberrant behavior suggestive of drug diversion. The patient is not having any adverse reactions to medications. The patient is not suffering from daytime somnolence or mental acuity changes. The patient is managing opiate-induced constipation with appropriate lzxq-gvw-wwpmnvx agents and dietary considerations. The patient was counseled on concern for caution with operating a motor vehicle while using opiate medications. A physical exam was performed and the patient's functional status was evaluated. All patients with back pain were advised against the bed rest greater than 4 days and were advised to return to normal activities. Pain score assessment was noted and the treatment plan was reviewed with the patient. All current medications, both prescribed and OTC were reviewed and reconciled on the electronic medical record. Tobacco screening was accomplished and smoking cessation was advised when indicated. BMI was noted and diet/exercise modification was recommended for all patients following outside normal parameters. I reviewed with the patient today their responsibilities to safeguard prescription medications, reviewed their responsibility to utilize medications only as prescribed by the physician. They are to seek and receive pain [facility] [address] [place] [address] PAIN MANAGEMENT CONSULTATION Name: JASON NICOLAS Room #: REG [facility]#: [id number] Admission: 04/09/18 Attend Phys: Ophelia Chun Discharge: Date of : 56 Report #: [id number] medications only from 1 physician group ( [facility]). They are to use 1 pharmacy and keep the clinic informed if they change pharmacies. Their responsibilities include making followup visits in a timely fashion and to avoid abrupt discontinuation of medication usage. Their responsibilities further include bringing their medications (bottles from the pharmacy with residual pills) to the visit for possible confirmation of pill counts and the patient understands it is their responsibility to submit to random drug screens to ensure both that the medications prescribed are present, and that no other controlled substances are present. All prescriptions provided today were generated electronically. PLAN: 1. The patient returns today for followup for his medication management. We discussed treatment options today. The patient tells me that he did not think decreasing from 30 mg of OxyContin b.i.d. to 20 mg b.i.d. would be as hard as it was. This last month, he had had difficulty sleeping, at times just having lots of increased pain. He realizes that the weather has played a big part in this and hopes that slowly, his body will adjust to these changes. He did not ask for an increase and understands that he needs to keep at the 20 mg of OxyContin twice a day to keep him per the CDC guidelines at 90 MME or below. The patient does tell me that he will need a refill of his Voltaren gel. 2. Scripts given today of OxyContin 20 mg b.i.d. #60 to be released today and again in 4 weeks. Second medication is Roxicodone 5 mg, #120 to be released today and again in 4 weeks. The patient was encouraged which may be save 2 pain pills for after work and before bedtime to see if that helps him sleep better at night. The patient is agreeable with this plan of care. 3. Voltaren gel was given to apply to his knees up to 4 times a day if needed. Also, we provided the patient with Flector patch samples to see if that helped with his knee pain. 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 4. Prescription for clonazepam 1 mg at bedtime that he takes for spasms, #30 with one additional refill. 5. The patient will return in 2-month time period for an appointment. The patient is seen today in collaboration with Dr. Mike Lundberg. <ELECTRONICALLY SIGNED> By: Ophelia Chun 04/10/18 0740 [id number] Ophelia Chun /nt
== END ==
LOC: PAIN 07:03
DX: M17.0 Bilateral primary osteoarthritis of knee (principal); G89.4 Chronic pain syndrome; F11.20 Opioid dependence, uncomplicated

== ENCOUNTER → 2018-06-04 | Outpatient (CLI) | payer OTHER ==
[~2018-06-04] VITALS: Ht 180.3 cm; Wt 115.6 kg
[~2018-06-04] MED LIST changes: +XTAMPZA ER18 MG PO
[2018-06-04 10:49] VITALS: BP 141/85
--- NOTE | 2018-06-04 11:01 | NUR ---
Pain Clinic Assessment: 1. History of Osteoarthritis: KNEES History of Rheumatoid Arthritis: Not Applicable 2. Height: 5 ft. 11 in. 180.3 cm. Weight: 254.8 lb. oz. 115.577 kg. Patient's BMI: 35.6 3. Vital Signs: BP: 141/85 Pulse: 60 Resp: 14 Temp: 02 Sat: 98 ECG Mon: 4. Pain Intensity: 7-8 5. Fall Risk: Dizziness: N Needs help standing or walking: N Fallen in the last 3 months: N Fall risk comments: 6. Patient on Blood Thinner: None 7. History of Hypertension: Y 8. Opioid Therapy greater than 6 weeks: Y Opiate Contract Signed: 11/01/15 9. Risk Assessment Tool Provided: 0/LOW 10. Functional Assessment Tool: 47 11. Recreational Drug Use: Never Drug Type: Tobacco Use: Former Smoker Tobacco Type: Amount or Packs/day: How Many Years: Alcohol Use: No Frequency: Quant:
--- NOTE | 2018-06-05 07:50 | HPC ---
[facility] [address] [address] PAIN MANAGEMENT CONSULTATION Name: JASON NICOLAS [facility] [id number] Admission: 06/04/18 ������������������ Attend Phys: Ophelia Chun Discharge: ������������������ Date of : 56 Report #: [id number] THIS REPORT FOR: //name// CC: Ophelia Vilchis DATE OF SERVICE: 06/04/2018 CHIEF COMPLAINT: Generalized body pain, arthritic pain in his bilateral knees. HISTORY OF PRESENT ILLNESS: This is a very pleasant 58-year-old gentleman who returns to the pain clinic today for refill of his medications. He tells me that his pain score is 7-8/10. His right knee is worse than the left. 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 He tells me occasionally has a sharp, aching pain, worse with his activity. By the time that he goes home from work at night, his right knee is swollen and he mostly just rest and relax when he gets home. He tells me that the pain medicines are helpful, but still continues to have ongoing pain. He tells me that he does not use his Voltaren very often usually once a day. ALLERGIES: AMLODIPINE, CRESTOR, PENICILLIN, VALSARTAN. MEDICATIONS: Current list of medications, diclofenac gel, OxyContin 20 mg twice a day, oxycodone 5 mg up to 4 times a day, clonazepam 1 mg daily, Benadryl 50 mg p.r.n., Ambien 10 mg p.r.n., lisinopril 10 mg daily, prednisone 10 mg daily, Bystolic 5 mg daily and omega 3 daily. THE PATIENT'S PQRS: 1. Has history of osteoarthritis in his knees. He denies rheumatoid arthritis. 2. Height is 5 feet 11 inches, weight is 254. BMI is 35. 3. Vital signs: 141/85, pulse is 60, respirations 14, oxygen sat is 98. 4. Pain score 7-8/10. 5. Fall risk. Denies dizziness, does not need help walking or standing, has not fallen in the last 3 months. 6. The patient is not on any blood thinners, but does take medicine for hypertension. 7. Opioid therapy is greater than 6 weeks; therefore, an opioid signed contract is on the chart. 8. Risk assessment tool is low. His functional system is 47/70. 9. Recreational drug use. He denies use of former smoker and does not drink alcohol. We did check the prescription monitoring system. The patient is filling appropriately for his medications and he is feeling them in a timely fashion. He does tell me he safeguards his medications and he has a drug screen within the past year on the chart. [address] [address] PAIN MANAGEMENT CONSULTATION Name: JASON NICOLAS Room #: REG [facility].#: [id number] Admission: 06/04/18 ������������������ Attend Phys: Ophelia Chun Discharge: ������������������ Date of : 56 Report #: [id number] PHYSICAL EXAMINATION: GENERAL: This is a well-developed, well-nourished 57-year-old gentleman that appears his stated age, placing his pain score today is 7-8/10. HEENT: Normocephalic, atraumatic. Pupils equal, round and reactive to light. EXTREMITIES: No clubbing, no cyanosis. Slight edema present in his right knee. MUSCULOSKELETAL: Lower extremity strength judged to be 5/5. The patient complains of tenderness on bilateral knees, greater in the right. ASSESSMENT: 1. Generalized arthralgias. 2. Generalized malaise, otherwise not specified. 3. Chronic bilateral knee pain. 4. Chronic intractable pain. 5. Opioid dependency. We reviewed the fact that opiate medications are being used to provide analgesia adequate to support activities of daily living, not attempting to achieve a specific pain score on the 0-10 Visual Analog Scale. The current opiate medications are providing sufficient analgesia to allow the patient to participate in activities of daily living. The patient is not exhibiting any aberrant behavior suggestive of drug diversion. The patient is not having any adverse reactions to medications. The patient is not suffering from daytime somnolence or mental acuity changes. The patient is managing opiate-induced constipation with appropriate wtrn-zro-mebmbuv agents and dietary considerations. The patient was counseled on concern for caution with operating a motor vehicle while using opiate medications. A physical exam was performed and the patient's functional status was evaluated. All patients with back pain were advised against the bed rest greater than 4 days and were advised to return to normal activities. Pain score assessment was noted and the treatment plan was reviewed with the patient. All current medications, both prescribed and OTC were reviewed and reconciled on the electronic medical record. Tobacco screening was accomplished and smoking cessation was advised when indicated. BMI was noted and diet/exercise modification was recommended for all patients following outside normal parameters. I reviewed with the patient today their responsibilities to safeguard prescription medications, reviewed their responsibility to utilize medications only as prescribed by the physician. They are to seek and receive pain medications only from 1 physician group ([facility]). They are to use 1 pharmacy and keep the clinic informed if they change pharmacies. Their responsibilities include making followup visits in a timely fashion and to avoid abrupt discontinuation of medication usage. Their responsibilities further include bringing their medications (bottles from the pharmacy with residual [facility] [address] [place] [address] PAIN MANAGEMENT CONSULTATION Name: JASON NICOLAS Room #: REG [facility].#: [id number] Admission: 06/04/18 ������������������ Attend Phys: Ophelia Chun Discharge: ������������������ Date of : 56 Report #: [id number] pills) to the visit for possible confirmation of pill counts and the patient understands it is their responsibility to submit to random drug screens to ensure both that the medications prescribed are present, and that no other controlled substances are present. All prescriptions provided today were generated electronically. PLAN: 1. We discussed treatment options with the patient today. The patient tells me that he continues to have daily pain rated around 7-8, but does continue to work. He tells me that his knees are very painful when he comes home at night and he mostly then just relaxes on the couch and uses some ice to his knees. 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 The patient is agreeable with this plan. 2. The patient would like a refill of his long-acting medicines. I explained to him that OxyContin has been slowly being withdrawn from the market. A 20 mg OxyContin is very hard to find, so we will attempt to do an opioid rotation to Xtampza 18 mg twice a day. The patient is agreeable with this and hopes that it will help reduce some of his pain. We will give him a savings card for this medication. The patient tells me that currently his OxyContin is costing him $80 a month. I explained to him that we have no control over the cost of medications. We are just trying to offer him the best alternative that we think that is available for him with OxyContin being withdrawn from the market. Scripts given for #60 for release today in 4 weeks. 3. Oxycodone 5 mg #120 also given today in 4 weeks. I encouraged the patient to take the lowest amount of pills available, explained to him that currently he is on a 90 morphine mEq according to the CDC guidelines. Our goal is to slowly reduce opioids and we will be needing to reduce his oxycodone in the future. 4. The patient is seen with Dr. Lundberg in collaboration with him today. ��������������������������������������������� <ELECTRONICALLY SIGNED> ���������������������������������������� By: Ophelia Chun ��������������������������������������������� 06/05/18 0750 [id number] Ophelia Chun /elder
== END ==
LOC: PAIN 07:11
DX: M25.562 Pain in left knee (principal); M25.561 Pain in right knee; G89.4 Chronic pain syndrome; F11.20 Opioid dependence, uncomplicated; R53.81 Other malaise; Z79.899 Other long term (current) drug therapy

== ENCOUNTER → 2018-07-30 | Outpatient (CLI) | payer OTHER ==
[~2018-07-30] VITALS: Ht 180.3 cm; Wt 115.9 kg
[2018-07-30 10:42] VITALS: BP 142/92
--- NOTE | 2018-07-30 10:46 | NUR ---
Pain Clinic Assessment: 1. History of Osteoarthritis: KNEES History of Rheumatoid Arthritis: Not Applicable 2. Height: 5 ft. 11 in. 180.3 cm. Weight: 255.6 lb. oz. 115.940 kg. Patient's BMI: 35.7 3. Vital Signs: BP: 142/92 Pulse: 59 Resp: 16 Temp: 02 Sat: 97 ECG Mon: 4. Pain Intensity: 8-9 5. Fall Risk: Dizziness: N Needs help standing or walking: N Fallen in the last 3 months: N Fall risk comments: 6. Patient on Blood Thinner: None 7. History of Hypertension: Y 8. Opioid Therapy greater than 6 weeks: Y Opiate Contract Signed: 11/01/15 9. Risk Assessment Tool Provided: 0/LOW 10. Functional Assessment Tool: 47 11. Recreational Drug Use: Never Drug Type: Tobacco Use: Former Smoker Tobacco Type: Amount or Packs/day: How Many Years: Alcohol Use: No Frequency: Quant:
--- NOTE | 2018-07-31 07:50 | HPC ---
[facility] [place] [address] PAIN MANAGEMENT CONSULTATION Name: JASON NICOLAS [facility] [id number] Admission: 07/30/18 ������������������ Attend Phys: Ophelia Chun Discharge: ������������������ Date of : 56 Report #: [id number] THIS REPORT FOR: //name// CC: Ophelia Vilchis DATE OF SERVICE: 07/30/2018 CHIEF COMPLAINT: Arthritic pain in his bilateral knees. HISTORY OF PRESENT ILLNESS: This is a very pleasant 58-year-old gentleman that is slightly depressed today, tearful at times. He tells me he is here for medication refills, but he tells me he did go and see his orthopedic doctor, Dr. Kenney, who has agreed to do surgery on him, but not for at least a couple of months. He will have a right total knee done, that is the worst knee, he said in the future. Doctor thinks he would need to have the left knee replaced as well. 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 He feels that he will need to have both of them done ultimately but would like to have one done now and then be able to retire and then get the other one done after [facility]. The patient tells me that the switch from his medication from OxyContin to Xtampza has been a difficult one. He finds that the medication may not be as beneficial, even though it is a similar type opioid. He thinks that his pain is increased. It is 8-9/10 today. He tells me that he has decreased his work to 4 days a week. He is not sleeping as well. Complains of an achy, sharp, stabbing pain, worse with climbing ladders, standing for a prolonged period of time and working, but his medication he does know decreases his pain significantly. He does also use his Voltaren gel at least 4 times a day. He was wondering if there was any alternative for his medications or should be continued at his current dose. ALLERGIES: AMLODIPINE, CRESTOR, PENICILLIN, EXFORGE. MEDICATION LIST: Xtampza ER 18 mg b.i.d., oxycodone 5 mg q.i.d., clonazepam 1 mg daily, Voltaren gel 4 grams q.i.d. p.r.n., Benadryl 50 mg p.r.n., Ambien 10 mg daily, lisinopril 10 mg daily, prednisone 5 mg daily, Bystolic 5 mg 1/4 of a pill daily and fish oil. PQRS: 1. He has significant osteoarthritis in his bilateral knees. 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 2. Height is 5 feet 11 inches, weight is 255, BMI is 35. 3. Vital signs: Blood pressure 142/92, pulse is 59, respirations 16, oxygen sat is 97. 4. Pain score is 8-9. [address] [address] PAIN MANAGEMENT CONSULTATION Name: JASON NICOLAS Room #: CHAUNCEY Mckinley#: [id number] Admission: 07/30/18 ������������������ Attend Phys: Ophelia Chun Discharge: ������������������ Date of : 56 Report #: [id number] 5. Fall risk. Denies dizziness. Does not need help walking or standing, has not fallen in the last 3 months. 6. The patient is not on any blood thinners. He does have a history of hypertension. 7. Opioid therapy is greater than 6 weeks; therefore, an opioid signed contract is on the chart. His risk assessment tool is low. Functional assessment is 47. 8. Recreational drug use, he denies. He is a former smoker and does not drink alcohol. We did check the prescription monitoring system. The patient is appropriately for his medications and there is a drug screen on the chart recently in the past year. PHYSICAL ASSESSMENT: GENERAL: This is a well-developed, well-nourished 58-year-old gentleman who appears his stated age, placing his pain score today at 9/10. HEENT: Normocephalic, atraumatic. Pupils equal, round and reactive to light. EXTREMITIES: No clubbing, no cyanosis. Slight edema present in his right knee. MUSCULOSKELETAL: Lower extremity strength judged to be 5/5. The patient complains of tenderness on bilateral knees, greater on the right side. He does have pain with extension and flexion of both knees, greater on the right. Does walk with a slightly antalgic gait. We reviewed the fact that opiate medications are being used to provide analgesia adequate to support activities of daily living, not attempting to achieve a specific pain score on the 0-10 Visual Analog Scale. The current opiate medications are providing sufficient analgesia to allow the patient to participate in activities of daily living. The patient is not exhibiting any aberrant behavior suggestive of drug diversion. The patient is not having any adverse reactions to medications. The patient is not suffering from daytime somnolence or mental acuity changes. The patient is managing opiate-induced constipation with appropriate [id number] agents and dietary considerations. The patient was counseled on concern for caution with operating a motor vehicle while using opiate medications. A physical exam was performed and the patient's functional status was evaluated. All patients with back pain were advised against the bed rest greater than 4 days and were advised to return to normal activities. Pain score assessment was noted and the treatment plan was reviewed with the patient. All current medications, both prescribed and OTC were reviewed and reconciled on the electronic medical record. Tobacco screening was accomplished and smoking cessation was advised when indicated. BMI was noted and diet/exercise modification was recommended for all patients following outside normal parameters. I reviewed with the patient today their responsibilities to safeguard prescription medications, reviewed their responsibility to utilize medications only as prescribed by the physician. They are to seek and receive pain [address] [address] PAIN MANAGEMENT CONSULTATION Name: FIDENCIOJASON Quirino Room #: REG [facility].#: [id number] Admission: 07/30/18 ������������������ Attend Phys: Ophelia Chun Discharge: ������������������ Date of : 56 Report #: [id number] medications only from 1 physician group ( [facility]). They are to use 1 pharmacy and keep the clinic informed if they change pharmacies. Their responsibilities include making followup visits in a timely fashion and to avoid abrupt discontinuation of medication usage. Their responsibilities further include bringing their medications (bottles from the pharmacy with residual pills) to the visit for possible confirmation of pill counts and the patient understands it is their responsibility to submit to random drug screens to ensure both that the medications prescribed are present, and that no other controlled substances are present. All prescriptions provided today were generated electronically. PLAN: 1. We discussed treatment options with the patient today. The patient tells me that his Xtampza felt like does not work quite as well as the OxyContin. His pharmacist told him that it is not the same medication. I explained to him, yes it is a different formula, but it is still the same oxycodone medication. I did offer to have him go back to OxyContin 20 mg twice a day. The patient thinks he would like to stay on the Xtampza for the next couple of months. Scripts given today for his Xtampza 18 mg b.i.d., #60 for today and 4-week release; oxycodone 5 mg q.i.d., #120 for release today and 4 weeks. 2. The patient is quite tearful at times throughout our conversation, stating he just wants to be able to have a surgery, but he is worried about finances. He feels that if he can wait until this fall, he would better be in a better financial place to have his surgery. As it stands right now, he will not have a surgery for at least 2 months. He has 5 weeks vacation, he will be able to use, but then before his disability kicks in, he will go about 6 weeks with no pay, so he is trying to save up some money to have his knee surgery. I voiced my concerns for that. I understand we will try and continue his current pain regimen until he gets through his surgery. We will discuss postop pain as it gets closer to whatever his surgery date is. 3. The patient feels that the Voltaren gel has been helpful. We will renew that script as well today. The patient is allowed to take it up to 4 times a day. I did provide him with some Flector patch samples today. He could wear those in the evening when he is at home or at sleep, but not use the Voltaren gel during that time. The patient verbalizes understanding. 4. Script also given for clonazepam 1 mg 1 tablet at bedtime, #30 with one additional refill. 5. Dr. Mike Lundberg did come in and visit with the patient as well today and collaborated care as well. ��������������������������������������������� <ELECTRONICALLY SIGNED> ���������������������������������������� By: Ophelia Chun ��������������������������������������������� 07/31/18 0750 [id number] Ophelia Chun /elder
== END ==
LOC: PAIN 06:58
DX: M25.562 Pain in left knee (principal); M25.561 Pain in right knee; I10 Essential (primary) hypertension; Z88.8 Allergy status to other drugs, medicaments and biological substances; Z79.899 Other long term (current) drug therapy; Z88.0 Allergy status to penicillin

== ENCOUNTER → 2018-09-24 | Outpatient (CLI) | payer OTHER ==
[~2018-09-24] VITALS: Ht 180.3 cm; Wt 115.7 kg
[2018-09-24 08:37] VITALS: BP 149/86
--- NOTE | 2018-09-24 08:42 | NUR ---
Pain Clinic Assessment: 1. History of Osteoarthritis: KNEES History of Rheumatoid Arthritis: Not Applicable 2. Height: 5 ft. 11 in. 180.3 cm. Weight: 255.0 lb. oz. 115.668 kg. Patient's BMI: 35.6 3. Vital Signs: BP: 149/86 Pulse: 61 Resp: 16 Temp: 02 Sat: 97 ECG Mon: 4. Pain Intensity: 8 5. Fall Risk: Dizziness: N Needs help standing or walking: N Fallen in the last 3 months: N Fall risk comments: 6. Patient on Blood Thinner: None 7. History of Hypertension: Y 8. Opioid Therapy greater than 6 weeks: Y Opiate Contract Signed: 11/01/15 9. Risk Assessment Tool Provided: 0/LOW 10. Functional Assessment Tool: 54/70 11. Recreational Drug Use: Never Drug Type: Tobacco Use: Former Smoker Tobacco Type: Amount or Packs/day: How Many Years: Alcohol Use: No Frequency: Quant:
--- NOTE | 2018-09-25 08:14 | HPC ---
[facility] [address] [place] [address] PAIN MANAGEMENT CONSULTATION Name: JASON NICOLAS Room #: REG [facility].#: [id number] Admission: 09/24/18 ������������������ Attend Phys: Ophelia Chun Discharge: ������������������ Date of : 56 Report #: [id number] THIS REPORT FOR: //name// CC: Ophelia Vilchis DO Dr Kenney DATE OF SERVICE: 09/24/2018 CHIEF COMPLAINT: Arthritic pain in bilateral knees. HISTORY OF PRESENT ILLNESS: This is a very pleasant 58-year-old gentleman who returns to the pain clinic today for refill of his medications that he uses to help treat his ongoing bilateral knee pain. He tells me that he is scheduled to have his knee replaced 10/29/[address] Kenney and he is hopeful but that after that his pain level will decrease some. He knows that eventually he does need to have his left knee operated on but hopefully by having surgery on his right knee, he will be able to tolerate and work for several more years with the left knee pain. The patient tells me today his pain score is 8/10. It is a sharp, stabbing, achy pain, worse with standing and activity and walking and the medication is helpful. He denies any problems currently with constipation or daytime sleepiness. He would also like to talk about postoperative pain management. ALLERGIES: AMLODIPINE, CRESTOR, PENICILLIN, EXFORGE and NUCYNTA. CURRENT LIST OF MEDICATIONS: Voltaren gel p.r.n., Xtampza ER 18 mg b.i.d., oxycodone 5 mg 4 times a day, clonazepam 1 mg p.r.n., Benadryl p.r.n., Ambien 10 mg at bedtime p.r.n., lisinopril 10 mg daily, prednisone 10 mg daily, Bystolic 5 mg fourth a tablet daily and fish oil. PQRS: 1. He has osteoarthritis in his bilateral knees. Denies rheumatoid arthritis. 2. Height is 5 feet 11 inches, weight is 255 and BMI is 35. 3. Vital signs: Blood pressure 149/86, pulse is 61, respirations 16 and oxygen sat is 97. 4. Pain score is 8/10. 5. Fall risk. Denies dizziness. Does not need help with walking or standing. Has not fallen in the last 3 months. 6. The patient is not on any blood thinners. He has a history of hypertension. 7. Opioid therapy is greater than 6 weeks; therefore, an opioid signed contract is on the chart. His risk assessment tool is low. Functional assessment is 54/70. 8. Recreational drug use, he denies. He is a former sm[place] [address] PAIN MANAGEMENT CONSULTATION Name: JASON NICOLAS Room #: REG [facility] Mckinley#: [id number] Admission: 09/24/18 ������������������ Attend Phys: Ophelia Chun Discharge: ������������������ Date of : 56 Report #: [id number] alcohol. We did check the prescription monitoring system. The patient is filling appropriately for his medications and we did check a random urine drug screen on him today. The patient tells me he does safeguard his medications. PHYSICAL EXAMINATION: GENERAL: This is a well-developed, well-nourished 58-year-old gentleman who appears his stated age, placing his current pain score at 8/10 today. He is alert and oriented. HEENT: Normocephalic and atraumatic. Pupils equal, round and reactive to light. Mucous membranes are moist. EXTREMITIES: No clubbing and no cyanosis. Slight edema present in his right knee. MUSCULOSKELETAL: Lower extremity strength is judged to be 5/5. Complains of tenderness in both in bilateral knees, greater on the right than the left. He does have pain with extension and flexion of the bilateral knees, greater on the right than the left. He walks with a slightly antalgic gait. We reviewed the fact that opiate medications are being used to provide analgesia adequate to support activities of daily living, not attempting to achieve a specific pain score on the 0-10 Visual Analog Scale. The current opiate medications are providing sufficient analgesia to allow the patient to participate in activities of daily living. The patient is not exhibiting any aberrant behavior suggestive of drug diversion. The patient is not having any adverse reactions to medications. The patient is not suffering from daytime somnolence or mental acuity changes. The patient is managing opiate-induced constipation with appropriate jyou-mzg-[id number] agents and dietary considerations. The patient was counseled on concern for caution with operating a motor vehicle while using opiate medications. A physical exam was performed and the patient's functional status was evaluated. All patients with back pain were advised against the bed rest greater than 4 days and were advised to return to normal activities. Pain score assessment was noted and the treatment plan was reviewed with the patient. All current medications, both prescribed and OTC were reviewed and reconciled on the electronic medical record. Tobacco screening was accomplished and smoking cessation was advised when indicated. BMI was noted and diet/exercise modification was recommended for all patients following outside normal parameters. I reviewed with the patient today their responsibilities to safeguard prescription medications, reviewed their responsibility to utilize medications only as prescribed by the physician. They are to seek and receive pain medications only from 1 physician group ( [facility]). They are to use 1 pharmacy and keep the clinic informed if they change pharmacies. Their [facility] [address] [place] [address] PAIN MANAGEMENT CONSULTATION Name: JASON NICOLAS Room #: REG [facility].#: [id number] Admission: 09/24/18 ������������������ Attend Phys: Ophelia Chun Discharge: ������������������ Date of : 56 Report #: [id number] responsibilities include making followup visits in a timely fashion and to avoid abrupt discontinuation of medication usage. Their responsibilities further include bringing their medications (bottles from the pharmacy with residual pills) to the visit for possible confirmation of pill counts and the patient understands it is their responsibility to submit to random drug screens to ensure both that the medications prescribed are present, and that no other controlled substances are present. All prescriptions provided today were generated electronically. PLAN: 1. The patient is scheduled for surgery with Dr. Kenney on 10/29/2017 per the [facility] and Dr. Mike Lundberg, the patient is clear from a Pain Management standpoint for surgery. The patient was instructed to continue his Xtampza for his long-acting medication postoperatively. He was instructed to take his Percocet 2 times a day for 5 days prior to surgery and then, no oxycodone 2 days prior to help with better pain control postoperatively, we will not give additional pain medicines postoperatively. He tells me that Dr. Kenney will provide all postop prescription for pain management. The patient was instructed to call our office with the medication and strength and the amount of pills that he received postoperatively as per the opioid agreement with our office. 2. The patient also instructed to take some medicine for constipation since he will have decreased activity and increased medications postoperatively. We discussed MiraLax, Ex-Lax and Senokot as possible options for him to take and currently, he takes no medications for constipation. 3. Script was given today for oxycodone 5 mg, #120 and Xtampza 18 mg, #60, both for today and 4-week release as well as his clonazepam 1 mg at bedtime, #30 with one additional refill. 4. The patient is seen in collaboration today with Dr. Mike Lundberg. ��������������������������������������������� <ELECTRONICALLY SIGNED> ���������������������������������������� By: Ophelia Chun ��������������������������������������������� 09/25/18 0814 [id number] [id number] Ophelia Chun /nt
== END ==
LOC: PAIN 06:52
DX: M25.561 Pain in right knee (principal); M25.562 Pain in left knee

== ENCOUNTER → 2018-11-19 | Outpatient (CLI) | payer OTHER ==
[~2018-11-19] VITALS: Ht 180.3 cm; Wt 110.5 kg
[~2018-11-19] MED LIST changes: +XTAMPZA ER13.5 MG PO
--- NOTE | ~2018-11-19 | HPC ---
[facility] [place] [address] PAIN MANAGEMENT CONSULTATION Name: JASON NICOLAS Room #: REG [facility].#: [id number] Admission: 11/19/18 Attend Phys: Mike Lundberg DO Discharge: Date of : 56 Report #: [id number] THIS REPORT FOR: //name// CC: Maynor Lundberg DATE OF SERVICE: 11/19/2018 REFERRING PHYSICIAN: Dr. Mike Allen. CHIEF COMPLAINT: Low back pain, bilateral knee pain. HISTORY OF PRESENT ILLNESS: As you know, the patient is a 58-year-old male who returns today in followup visit having undergone right total knee arthroplasty about 3 weeks ago. He is improving well. He has been utilizing less opioid medication over the past 3 weeks and returns today to begin the weaning process of opioid medications if at all possible. Currently, he is taking Xtampza 18 mg twice a day along with oxycodone 5/325 up to 4 times a day. He returns today in followup visit to make adjustments in the medications in hopes of ultimately weaning off medications. Today's pain is rated no greater than 4/10. He is ambulating with a cane, but states his strength has begun to return. He is considering the left knee in the future. He returns today for adjustments in medication management. ALLERGIES: AMLODIPINE, CRESTOR, PENICILLIN, EXFORGE, NUCYNTA. CURRENT MEDICATIONS: Voltaren gel 1% solution applied topically 4 times a day, Xtampza ER 18 mg b.i.d., oxycodone 5 mg 4 times a day, clonazepam 1 mg p.r.n. at bedtime, Benadryl p.r.n., Ambien 10 mg p.o. at bedtime, lisinopril 10 mg per day, Bystolic 5 mg once a day, omega-3 fish oil 1200 mg once a day. SOCIAL HISTORY: The patient denies tobacco, alcohol, IV illicit drug use. He is unaccompanied today. IMAGING: No new imaging available. PHYSICAL EXAMINATION: VITAL SIGNS: Blood pressure 132/68, pulse is 56, respiratory rate 18 and unlabored. The patient is 97% on room air. Height 5 feet 11 inches tall, weight 243.6 pounds, BMI calculated 34.0. GENERAL: Well-developed, well-nourished, well-hydrated, exogenously obese 58-year-old male, appearing stated age, pain is rated no greater than 4/10. HEENT: Normocephalic, atraumatic. Pupils equal, round, reactive to light. Extraocular muscles are intact. NEUROLOGIC: Speech fluent. The patient [place] [address] PAIN MANAGEMENT CONSULTATION Name: FIDENCIOJASON L [id number] Admission: 11/19/18 Attend Phys: Mike Lundberg DO Discharge: Date of : 56 Report #: [id number] EXTREMITIES: Show no clubbing, no cyanosis, and no edema. MUSCULOSKELETAL: There is a well-healed surgical scar over the right knee. Motion appears to be improving significantly. He has approximately 125 degrees of flexion today. He is continuing to work on this activity. There is some palpatory tenderness over the paraspinal musculature of lower lumbar spine. Pain is elicited with standing from seated position, mainly over the left knee. ASSESSMENT: 1. Generalized arthralgia. 2. Generalized myalgias. 3. Chronic bilateral knee pain secondary to osteoarthritis. 4. Chronic low back pain. 5. Chronic intractable pain. 6. Opioid dependency. PLAN: 1. The patient returns today in followup visit for adjustments in his opioid medications. He is hopeful to ultimately wean off of opioid medications now that he has addressed his pain generator on the right with a total knee arthroplasty. He continues to experience left knee pain, but has been advised to delay as long as possible undergoing any type of procedure in that knee. The patient returns today requesting adjustments in medication therapy in hopes of ultimately weaning off of medication. 2. The patient and I have agreed that he will reduce his Xtampza from 18 mg b.i.d. to 13.5 mg b.i.d. This will be the first drop in medication. We will then continue the 13.5 mg b.i.d. dose for 1 month with the intention then to drop to 9 mg the following month and then off the medication entirely. During the timeframe that we make the adjustments, we will be providing oxycodone on an as needed basis. 3. The patient was provided a prescription of Xtampza 13.5 mg dose 1 tab p.o. b.i.d., #60 tablets, no refills. 4. We will restart the patient's oxycodone 5 mg dose 1 tab p.o. q.i.d. p.r.n. pain. The patient was advised to utilize this medication only when pain is intolerable. We are hopeful he can wean off the use of immediate release formulation by the end of the month, thus being able to continue the weaning process, dropping the Xtampza, re-increasing the oxycodone for a month and then reducing oxycodone over the following month, ultimately coming off opioids entirely. 5. We reviewed the fact that opiate medications are being used to provide analgesia adequate to support activities of daily living, not attempting to achieve a specific pain score on the 0-10 Visual Analog Scale. The current opiate medications are providing sufficient analgesia to allow the patient to participate in activities of daily living. The patient is not exhibiting any aberrant behavior suggestive of drug diversion. The patient is not having any adverse reactions to medications. The patient is not suffering from daytime somnolence or mental acuity changes. The patient is managing opiate-induced [facility] [address] [place] [address] PAIN MANAGEMENT CONSULTATION Name: JASON NICOLAS Room #: REG [facility].#: [id number] Admission: 11/19/18 Attend Phys: Mike Lundberg DO Discharge: Date of : 56 Report #: [id number] constipation with appropriate tqye-tac-lxfqlom agents and dietary considerations. The patient was counseled on concern for caution with operating a motor vehicle while using opiate medications. A physical exam was performed and the patient's functional status was evaluated. All patients with back pain were advised against the bed rest greater than 4 days and were advised to return to normal activities. Pain score assessment was noted and the treatment plan was reviewed with the patient. All current medications, both prescribed and OTC were reviewed and reconciled on the electronic medical record. Tobacco screening was accomplished and smoking cessation was advised when indicated. BMI was noted and diet/exercise modification was recommended for all patients following outside normal parameters. I reviewed with the patient today their responsibilities to safeguard prescription medications, reviewed their responsibility to utilize medications only as prescribed by the physician. They are to seek and receive pain medications only from 1 physician group ( [facility]). They are to use 1 pharmacy and keep the clinic informed if they change pharmacies. Their responsibilities include making followup visits in a timely fashion and to avoid abrupt discontinuation of medication usage. Their responsibilities further include bringing their medications (bottles from the pharmacy with residual pills) to the visit for possible confirmation of pill counts and the patient understands it is their responsibility to submit to random drug screens to ensure both that the medications prescribed are present, and that no other controlled substances are present. All prescriptions provided today were generated electronically. 6. The patient ____ was provided prescription of clonazepam 1 mg dose. He was given 1 tab p.o. at bedtime, #30 with no refills. The patient was advised to take this medication on a p.r.n. basis, not to take the medication prophylactically. 7. We will see the patient back in followup visit in 1 month. At that time, continue the weaning process of opioid medications if possible. By: [id number] Mike Lundberg DO /elder
[2018-11-19 09:08] VITALS: BP 132/68
--- NOTE | 2018-11-19 09:12 | NUR ---
Pain Clinic Assessment: 1. History of Osteoarthritis: KNEES History of Rheumatoid Arthritis: Not Applicable 2. Height: 5 ft. 11 in. 180.3 cm. Weight: 243.6 lb. oz. 110.496 kg. Patient's BMI: 34.0 3. Vital Signs: BP: 132/68 Pulse: 56 Resp: 18 Temp: 02 Sat: 97 ECG Mon: 4. Pain Intensity: 4 5. Fall Risk: Dizziness: N Needs help standing or walking: N Fallen in the last 3 months: N Fall risk comments: 6. Patient on Blood Thinner: None 7. History of Hypertension: Y 8. Opioid Therapy greater than 6 weeks: Y Opiate Contract Signed: 11/01/15 9. Risk Assessment Tool Provided: 0/LOW 10. Functional Assessment Tool: 54/70 11. Recreational Drug Use: Never Drug Type: Tobacco Use: Former Smoker Tobacco Type: Amount or Packs/day: How Many Years: Alcohol Use: No Frequency: Quant:
== END ==
LOC: PAIN 06:46
DX: M17.0 Bilateral primary osteoarthritis of knee (principal); G89.4 Chronic pain syndrome; F11.20 Opioid dependence, uncomplicated; Z88.8 Allergy status to other drugs, medicaments and biological substances; Z88.0 Allergy status to penicillin; Z79.899 Other long term (current) drug therapy

== ENCOUNTER → 2018-12-17 | Outpatient (CLI) | payer OTHER ==
[~2018-12-17] VITALS: Ht 175.3 cm; Wt 111.6 kg
[~2018-12-17] MED LIST changes: +CYMBALTA30 MG PO; +XTAMPZA ER9 MG PO
[2018-12-17 08:23] VITALS: BP 127/70
--- NOTE | 2018-12-17 08:32 | NUR ---
Pain Clinic Assessment: 1. History of Osteoarthritis: KNEES History of Rheumatoid Arthritis: Not Applicable 2. Height: 5 ft. 9 in. 175.3 cm. Weight: 246.0 lb. oz. 111.585 kg. Patient's BMI: 36.3 3. Vital Signs: BP: 127/70 Pulse: 79 Resp: 16 Temp: 02 Sat: 97 ECG Mon: 4. Pain Intensity: 6 5. Fall Risk: Dizziness: N Needs help standing or walking: N Fallen in the last 3 months: N Fall risk comments: 6. Patient on Blood Thinner: None 7. History of Hypertension: Y 8. Opioid Therapy greater than 6 weeks: Y Opiate Contract Signed: 11/01/15 9. Risk Assessment Tool Provided: 0/LOW 10. Functional Assessment Tool: 54/70 11. Recreational Drug Use: Never Drug Type: Tobacco Use: Former Smoker Tobacco Type: Amount or Packs/day: How Many Years: Alcohol Use: No Frequency: Quant:
--- NOTE | 2018-12-30 08:01 | HPC ---
[facility] [address] [address] PAIN MANAGEMENT CONSULTATION Name: JASON NICOLAS Room #: REG [facility].#: [id number] Admission: 12/17/18 Attend Phys: Mike Lundberg DO Discharge: Date of : 56 Report #: [id number] THIS REPORT FOR: //name// CC: Maynor Lundberg DATE OF SERVICE: 12/17/2018 CHIEF COMPLAINT: Back pain, bilateral knee pain, status post total knee arthroplasty. HISTORY OF PRESENT ILLNESS: As you know, the patient is a 58-year-old male, returning today in followup visit having undergone right total knee arthroplasty with a slow improvement in pain. He returns today to refill medications. He continues workup with his orthopedic in regards to ongoing pain issues that have yet to resolve even with total knee arthroplasty. He returns requesting refill on medications at this time. He is denying any side effects to medication including sleepiness, disorientation, confusion, mental slowing and constipation. He places pain today 08/25. ALLERGIES: AMLODIPINE, ROSUVASTATIN, PENICILLIN, VALSARTAN, NUCYNTA. CURRENT MEDICATIONS: Clonazepam, oxycodone, Xtampza, zolpidem, lisinopril, Bystolic, and omega-3 fish oil. SOCIAL HISTORY: He denies tobacco, alcohol, IV or illicit drug use. He is working, not receiving workmen's compensation, unaccompanied today. IMAGING: No new imaging available. PHYSICAL EXAMINATION: VITAL SIGNS: Blood pressure 127/70, pulse 79, respiratory rate 16 and unlabored. The patient is 97% on room air. Height 5 feet 9 inches tall, weight 246 pounds, BMI calculated 36.3. GENERAL: Well-developed, well-nourished, well-hydrated exogenously obese 58-year-old male appearing stated age, pain is rated around 6/10. HEENT: Normocephalic, atraumatic. Pupils equal, round, reactive to light. EXTREMITIES: Show no clubbing, no cyanosis, no edema. MUSCULOSKELETAL: There is noted swelling around the right knee, well-healed surgical scars. Pain is elicited with active and passive range of motion of the right knee. There is no crepitus. There does not appear to be any laxity of the joint. There is palpatory tenderness over the paraspinal musculature of lower lumbar spine. ASSESSMENT: [address] [address] PAIN MANAGEMENT CONSULTATION Name: JASON NICOLAS Quirino Room #: REG [facility]#: [id number] Admission: 12/17/18 Attend Phys: Mike Lundberg DO Discharge: Date of : 56 Report #: [id number] 1. Bilateral knee pain, right greater than left. 2. Postsurgical pain, status post right total knee arthroplasty. 3. Generalized arthralgias. 4. Generalized myalgias. 5. Chronic low back pain. 6. Chronic intractable pain. 7. Opioid dependency. PLAN: 1. The patient returns today in followup visit requesting refill on medications. We have been progressively reducing the patient's medications, trying to wean off of opioids as much as possible. He is currently down to 13.5 mg of Xtampza per day, utilizing oxycodone p.r.n. 4 times a day with benefit. We will stabilize at this dose for this month as he continues workup for his ongoing right knee pain. Once this has begun to resolve, we will then continue the weaning process dropping his dose of Xtampza to 9 mg at our next visit. The patient is agreeable. 2. We reviewed the fact that opiate medications are being used to provide analgesia adequate to support activities of daily living, not attempting to achieve a specific pain score on the 0-10 Visual Analog Scale. The current opiate medications are providing sufficient analgesia to allow the patient to participate in activities of daily living. The patient is not exhibiting any aberrant behavior suggestive of drug diversion. The patient is not having any adverse reactions to medications. The patient is not suffering from daytime somnolence or mental acuity changes. The patient is managing opiate-induced constipation with appropriate tuie-lwy-bezryth agents and dietary considerations. The patient was counseled on concern for caution with operating a motor vehicle while using opiate medications. A physical exam was performed and the patient's functional status was evaluated. All patients with back pain were advised against the bed rest greater than 4 days and were advised to return to normal activities. Pain score assessment was noted and the treatment plan was reviewed with the patient. All current medications, both prescribed and OTC were reviewed and reconciled on the electronic medical record. Tobacco screening was accomplished and smoking cessation was advised when indicated. BMI was noted and diet/exercise modification was recommended for all patients following outside normal parameters. I reviewed with the patient today their responsibilities to safeguard prescription medications, reviewed their responsibility to utilize medications only as prescribed by the physician. They are to seek and receive pain medications only from 1 physician group ([facility]). They are to use 1 pharmacy and keep the clinic informed if they change pharmacies. Their responsibilities include making followup visits in a timely fashion and to avoid abrupt discontinuation of medication usage. Their responsibilities further [address] [address] PAIN MANAGEMENT CONSULTATION Name: JASON NICOLAS Room #: REG [facility] [id number] Admission: 12/17/18 Attend Phys: Mike Lundberg DO Discharge: Date of : 56 Report #: [id number] include bringing their medications (bottles from the pharmacy with residual pills) to the visit for possible confirmation of pill counts and the patient understands it is their responsibility to submit to random drug screens to ensure both that the medications prescribed are present, and that no other controlled substances are present. All prescriptions provided today were generated electronically. 3. The patient was provided prescription of Xtampza ER 13.5 mg 1 tab p.o. b.i.d. I have given the patient #60 tablets, releasing today, no refills. 4. The patient was provided prescription of oxycodone 5 mg dose 1 tab p.o. q. 6 hours p.r.n. for pain. I have given the patient #120 with no refills. 5. The patient was provided prescription of Cymbalta 30 mg dose 1 tab p.o. b.i.d., #60, 2 refills. 6. We will see the patient back in followup visit in 1 month for further adjustments in opioid medications. <ELECTRONICALLY SIGNED> By: Mike Lundberg DO 12/30/18 0801 1 2352 Mike Lundberg DO /nt
== END ==
LOC: PAIN 06:57
DX: M25.561 Pain in right knee (principal); M25.562 Pain in left knee; G89.4 Chronic pain syndrome; M54.5 Low back pain; F11.20 Opioid dependence, uncomplicated; M79.10 Myalgia, unspecified site

== ENCOUNTER → 2019-01-14 | Outpatient (CLI) | payer OTHER ==
[~2019-01-14] VITALS: Ht 175.3 cm; Wt 108.9 kg
[2019-01-14 10:52] VITALS: BP 138/68
--- NOTE | 2019-01-14 10:59 | NUR ---
Pain Clinic Assessment: 1. History of Osteoarthritis: KNEES History of Rheumatoid Arthritis: Not Applicable 2. Height: 5 ft. 9 in. 175.3 cm. Weight: 240.0 lb. oz. 108.864 kg. Patient's BMI: 35.4 3. Vital Signs: BP: 138/68 Pulse: 50 Resp: 15 Temp: 02 Sat: 98 ECG Mon: 4. Pain Intensity: 4 5. Fall Risk: Dizziness: N Needs help standing or walking: N Fallen in the last 3 months: N Fall risk comments: 6. Patient on Blood Thinner: None 7. History of Hypertension: Y 8. Opioid Therapy greater than 6 weeks: Y Opiate Contract Signed: 11/01/15 9. Risk Assessment Tool Provided: 0/LOW 10. Functional Assessment Tool: 54/70 11. Recreational Drug Use: Never Drug Type: Tobacco Use: Former Smoker Tobacco Type: Amount or Packs/day: How Many Years: Alcohol Use: No Frequency: Quant:
--- NOTE | 2019-01-15 08:49 | HPC ---
[facility] [address] [place] [address] PAIN MANAGEMENT CONSULTATION Name: JASNO NICOLAS [id number] Admission: 01/14/19 Attend Phys: Ophelia Chun Discharge: Date of : 56 Report #: [id number] THIS REPORT FOR: //name// CC: Ophelia PALMER DO DATE OF SERVICE: 01/14/2019 CHIEF COMPLAINT: Back pain, bilateral knee pain, status post total knee arthroplasty. HISTORY OF PRESENT ILLNESS: This is a very pleasant 58-year-old gentleman who returns to the pain clinic today following his total right knee arthroplasty. He has returned to work, does continue in his physical therapy, but he reports that his pain is doing quite well, rating at a 4/10. We have been slowly decreasing his long-acting medicines and we will continue to do so today. He reports that his pain is located only in his right knee today, worse with walking, but he reported he has returned to work on light duty. He does ice his knee after getting home from work and finds the medication still beneficial. Since he has been busy doing therapy since his surgery, he has lost about 10 pounds. His blood pressure has been at a lower range. He reports he will be seeing his primary care doctor next week to possibly decrease his blood pressure medicine due to these reasons. ALLERGIES: AMLODIPINE, CRESTOR, PENICILLIN, VALSARTAN and NUCYNTA. CURRENT MEDICATIONS: Xtampza 13.5 mg b.i.d., oxycodone 5 mg p.r.n., Ambien 10 mg p.r.n., Zestril 10 mg daily, Bystolic 5 mg a fourth a tablet daily and fish oil. PQRS: 1. He has history of osteoarthritis in his bilateral knees. Denies any rheumatoid arthritis. 2. Height is 5 feet 9 inches, weight is 246, BMI is 36. 3. Vital signs, 127/70, pulse is 79, respirations 16, oxygen sat is 97. 4. Pain score 6/10. 5. Denies dizziness, does not need help walking or standing, has not fallen in the last 3 months. 6. The patient is not on any blood thinners, but does take medicine for hypertension. 7. Opioid therapy is greater than 6 weeks; therefore, an opioid signed contract on the chart. His risk assessment tool is low. Functional assessment is 54/70. 8. Recreational drug use, he denies. He is a former [place] [address] PAIN MANAGEMENT CONSULTATION Name: JASON NICOLAS [facility]: [facility] [id number] Admission: 01/14/19 Attend Phys: Ophelia Chun Discharge: Date of : 56 Report #: [id number] alcohol. According to the prescription monitoring system, he is filling appropriately for his medications and is due for those early next week. There is a urine drug screen on the chart that is appropriate as well. PHYSICAL EXAMINATION: GENERAL: This is a well-developed, well-nourished, well-hydrated exogenously obese 58-year-old gentleman who appears his stated age, placing his current pain score at 4/10. HEENT: Normocephalic, atraumatic. Extraocular eye muscles are intact. Mucous membranes are moist. EXTREMITIES: No clubbing, no cyanosis, no edema. MUSCULOSKELETAL: Slight swelling noted on the lateral aspect of the right knee. He has tenderness with range of motion, both passive and active, of his right knee. He has a well-healed approximated scar. He also complains of slight lumbosacral tenderness in his lumbar spine. ASSESSMENT: 1. Bilateral knee pain, right greater than left. 2. Postsurgical pain, status post right total knee arthroplasty. 3. Generalized arthralgias. 4. Generalized myalgias. 5. Chronic low back pain. 6. Chronic intractable pain. 7. Opioid dependency. We reviewed the fact that opiate medications are being used to provide analgesia adequate to support activities of daily living, not attempting to achieve a specific pain score on the 0-10 Visual Analog Scale. The current opiate medications are providing sufficient analgesia to allow the patient to participate in activities of daily living. The patient is not exhibiting any aberrant behavior suggestive of drug diversion. The patient is not having any adverse reactions to medications. The patient is not suffering from daytime somnolence or mental acuity changes. The patient is managing opiate-induced constipation with appropriate zqni-qul-sifxjcl agents and dietary considerations. The patient was counseled on concern for caution with operating a motor vehicle while using opiate medications. A physical exam was performed and the patient's functional status was evaluated. All patients with back pain were advised against the bed rest greater than 4 days and were advised to return to normal activities. Pain score assessment was noted and the treatment plan was reviewed with the patient. All current medications, both prescribed and OTC were reviewed and reconciled on the electronic medical record. Tobacco screening was accomplished and smoking cessation was advised when indicated. BMI was noted and diet/exercise [address] [address] PAIN MANAGEMENT CONSULTATION Name: JASON NICOLAS Room #: REG [facility]#: [id number] Admission: 01/14/19 Attend Phys: Ophelia Cuhn Discharge: Date of : 56 Report #: [id number] modification was recommended for all patients following outside normal parameters. I reviewed with the patient today their responsibilities to safeguard prescription medications, reviewed their responsibility to utilize medications only as prescribed by the physician. They are to seek and receive pain medications only from 1 physician group ( [facility]). They are to use 1 pharmacy and keep the clinic informed if they change pharmacies. Their responsibilities include making followup visits in a timely fashion and to avoid abrupt discontinuation of medication usage. Their responsibilities further include bringing their medications (bottles from the pharmacy with residual pills) to the visit for possible confirmation of pill counts and the patient understands it is their responsibility to submit to random drug screens to ensure both that the medications prescribed are present, and that no other controlled substances are present. All prescriptions provided today were generated electronically. PLAN: 1. We discussed treatment options with the patient today. He has done quite well, decreasing his medications with no symptoms of withdrawal. We will continue to decrease his Xtampza to 9 mg today b.i.d. with the plan of decreasing him off this medication at his next visit in 1 month. Scripts given today for #60. 2. We will continue his breakthrough pain medicine of oxycodone 5 mg, #120, given today. 3. Clonazepam 1 mg, #30, at bedtime. The patient takes these sparingly and not at the same time he takes his Ambien. 4. The patient found the Cymbalta very beneficial at 30 mg per day. He did increase it to 60, but found that he did not need the dose and had some side effects, so he decreased it to one time at bedtime, quantity 30 given with 2 additional refills. 5. The patient is seen in collaboration with Dr. Mike Lundberg who did see the patient today. The patient will return in 1 month for continuation of tapering his opioid medications. <ELECTRONICALLY SIGNED> By: Ophelia Chun 01/15/19 0849 [id number] Ophelia Chun /nt
== END ==
LOC: PAIN 07:07
DX: G89.4 Chronic pain syndrome (principal); M25.561 Pain in right knee; M25.562 Pain in left knee; M54.5 Low back pain; Z79.899 Other long term (current) drug therapy; Z79.891 Long term (current) use of opiate analgesic; Z96.651 Presence of right artificial knee joint; Z88.0 Allergy status to penicillin; Z88.1 Allergy status to other antibiotic agents; Z88.8 Allergy status to other drugs, medicaments and biological substances

== ENCOUNTER → 2019-02-11 | Outpatient (CLI) | payer OTHER ==
[~2019-02-11] VITALS: Ht 175.3 cm; Wt 109.0 kg
[~2019-02-11] MED LIST changes: +PERCOCET 10-321 EAC1 PO; +PERCOCET 5-3251 EACH PO; +PERCOCET 7.5-31 EAC1 PO
[2019-02-11 10:48] VITALS: BP 125/76
--- NOTE | 2019-02-11 11:00 | NUR ---
Pain Clinic Assessment: 1. History of Osteoarthritis: KNEES History of Rheumatoid Arthritis: Not Applicable 2. Height: 5 ft. 9 in. 175.3 cm. Weight: 240.4 lb. oz. 109.045 kg. Patient's BMI: 35.5 3. Vital Signs: BP: 125/76 Pulse: 51 Resp: 14 Temp: 02 Sat: 97 ECG Mon: 4. Pain Intensity: 3 5. Fall Risk: Dizziness: N Needs help standing or walking: N Fallen in the last 3 months: N Fall risk comments: 6. Patient on Blood Thinner: None 7. History of Hypertension: Y 8. Opioid Therapy greater than 6 weeks: Y Opiate Contract Signed: 11/01/15 9. Risk Assessment Tool Provided: 0/LOW 10. Functional Assessment Tool: 54/70 11. Recreational Drug Use: Never Drug Type: Tobacco Use: Former Smoker Tobacco Type: Amount or Packs/day: How Many Years: Alcohol Use: No Frequency: Quant:
--- NOTE | 2019-02-11 13:42 | HPC ---
[facility] [address] [place] [address] PAIN MANAGEMENT CONSULTATION Name: JASON NICOLAS Room #: [facility] [id number] Admission: 02/11/19 Attend Phys: Ophelia Chun Discharge: Date of : 56 Report #: [id number] THIS REPORT FOR: //name// CC: Ophelia Parson DATE OF SERVICE: 02/11/2019 CHIEF COMPLAINT: Back pain, bilateral knee pain, status post total knee arthroplasty. HISTORY OF PRESENT ILLNESS: This is a very pleasant 58-year-old gentleman who returns to the pain clinic today for refill of his medication that he uses to help treat his chronic right knee pain and low back pain. He recently had a total knee arthroplasty about 10 weeks ago. He reports he is doing quite well. He does occasionally have swelling in the right knee, especially since he has started climbing ladders at work. In the past week, he has noticed an increase in the swelling. He is having more left knee pain as a result of compensation in his walking and his working. He does have occasional low back pain as well. He feels the medications have been helpful. He has been trying to reduce these medications and has been able to go without his Xtampza on some days. He would like to continue to decrease these today. Denies any problems with constipation or daytime sleepiness. He continues to use ice and elevation of his legs in the evening, which has been beneficial as well as his medications. ALLERGIES: AMLODIPINE, CRESTOR, PENICILLIN, VALSARTAN AND NUCYNTA. CURRENT LIST OF MEDICATIONS: Oxycodone 5/325 p.r.n., Xtampza 9 mg b.i.d., Cymbalta 30 mg daily, clonazepam 1 mg p.r.n., Ambien 10 mg at bedtime, lisinopril 10 mg daily, Bystolic 5 mg daily and fish oil. PQRS: 1. He has history of osteoarthritis in his bilateral knees. Denies any rheumatoid arthritis. 2. Height is 5 feet 9 inches, weight is 240, BMI is 35. 3. Vital signs 125/76, pulse is 51, respirations 14, oxygen sat is 97. 4. Pain score is 3/10. 5. Denies dizziness. Does not need help walking or standing, has not fallen in the last 3 months. 6. The patient is not on any blood thinners, but does take medicine for hypertension. 7. Opioid therapy is greater than 6 weeks; therefore, an opiate signed contract is on the chart. Risk assessment tool is low. Functional assessment is 54/70. 8. Recreational drug use, he denies. He is a former smoker and does not drink [address] [address] PAIN MANAGEMENT CONSULTATION Name: JASON NICOLAS [facility] [id number] Admission: 02/11/19 Attend Phys: Ophelia Chun Discharge: Date of : 56 Report #: [id number] alcohol. According to the prescription monitoring system, the patient is due to fill his medications in a few days. There are no aberrant fills. PHYSICAL EXAMINATION: GENERAL: This is a well-developed, well-nourished 58-year-old gentleman who appears his stated age, placing his current pain score at 3/10 today. HEENT: Normocephalic, atraumatic. Extraocular eye muscles are intact. Mucous membranes are moist. EXTREMITIES: No clubbing, no cyanosis. Slight edema on his right knee is present today of 1+. MUSCULOSKELETAL: He has good range of motion in his right knee with minimal increase in pain. He has a well-healed approximated scar on his right knee. He has tenderness of his left knee today. There is also tenderness in his lumbosacral paraspinal muscles of his lumbar spine. His lower extremity strength judged to be 5/5 in all major muscle groups and good sensation from L1 through S2 dermatomes. ASSESSMENT: 1. Bilateral knee pain, today left greater than right. Postsurgical pain, status post right total knee arthroplasty. 2. General arthralgias. 3. General myalgias. 4. Chronic low back pain. 5. Chronic intractable pain. 6. Opioid dependency. We reviewed the fact that opiate medications are being used to provide analgesia adequate to support activities of daily living, not attempting to achieve a specific pain score on the 0-10 Visual Analog Scale. The current opiate medications are providing sufficient analgesia to allow the patient to participate in activities of daily living. The patient is not exhibiting any aberrant behavior suggestive of drug diversion. The patient is not having any adverse reactions to medications. The patient is not suffering from daytime somnolence or mental acuity changes. The patient is managing opiate-induced constipation with appropriate irjt-ctc-sqhaaud agents and dietary considerations. The patient was counseled on concern for caution with operating a motor vehicle while using opiate medications. A physical exam was performed and the patient's functional status was evaluated. All patients with back pain were advised against the bed rest greater than 4 days and were advised to return to normal activities. Pain score assessment was noted and the treatment plan was reviewed with the patient. All current medications, both prescribed and OTC were reviewed and reconciled on the electronic medical record. Tobacco screening was accomplished and smoking [address] [address] PAIN MANAGEMENT CONSULTATION Name: JASON NICOLAS Room #: REG [facility]#: [id number] Admission: 02/11/19 Attend Phys: Ophelia Chun Discharge: Date of : 56 Report #: [id number] cessation was advised when indicated. BMI was noted and diet/exercise modification was recommended for all patients following outside normal parameters. I reviewed with the patient today their responsibilities to safeguard prescription medications, reviewed their responsibility to utilize medications only as prescribed by the physician. They are to seek and receive pain medications only from 1 physician group ( [facility]). They are to use 1 pharmacy and keep the clinic informed if they change pharmacies. Their responsibilities include making followup visits in a timely fashion and to avoid abrupt discontinuation of medication usage. Their responsibilities further include bringing their medications (bottles from the pharmacy with residual pills) to the visit for possible confirmation of pill counts and the patient understands it is their responsibility to submit to random drug screens to ensure both that the medications prescribed are present, and that no other controlled substances are present. All prescriptions provided today were generated electronically. PLAN: 1. We discussed treatment options with the patient today. The patient has recovered quite nicely from his total right knee arthroplasty. He is already climbing ladders at work. I did caution him to not overdo his exercise and work since he is still in the acute postoperative phase. He verbalizes understanding. He does explain that it does swell sometimes when he overdoes his work. 2. The patient reports he has been able to go without his evening dose of Xtampza lately trying to decrease his medications. We have a plan in place to slowly wean him off his medications, which is our ultimate goal as well as his. Today, we would like to stop his Xtampza and only allow him breakthrough pain medications. We will increase his Percocet to compensate so he does not go through any withdrawal. Scripts given today for Percocet 10/325, #120. This will place him at 60 morphine mEq a day. 3. Scripts given for 4-week release of Percocet 7.5/325 again #120 and an 8-week release of Percocet 5/325, #120. This will gradually decrease him slowly. If he has any difficulty with the adjustment, he is to call our appointment line to schedule and bring in any scripts that he has in his possession back. 4. Duloxetine 30 mg, #30 with 2 additional refills was also given today. The patient verbalizes understanding of the weaning process of his medications. He will call if needed. The patient is seen in collaboration today with Dr. Mike Lundberg. <ELECTRONICALLY SIGNED> By: Ophelia Chun 02/11/19 1342 1131 [id number] Ophelia Chun /elder
== END ==
LOC: PAIN 06:48
DX: M54.5 Low back pain (principal); M25.561 Pain in right knee; M25.562 Pain in left knee; G89.29 Other chronic pain; M25.50 Pain in unspecified joint; M79.10 Myalgia, unspecified site; Z79.891 Long term (current) use of opiate analgesic

== ENCOUNTER → 2019-04-22 | Outpatient (CLI) | payer OTHER ==
[~2019-04-22] VITALS: Ht 180.3 cm; Wt 103.9 kg
[~2019-04-22] MED LIST changes: +OXYCODONE-ACET1 EACH PO
[2019-04-22 12:41] VITALS: BP 152/90
--- NOTE | 2019-04-22 12:42 | NUR ---
Pain Clinic Assessment: 1. History of Osteoarthritis: KNEES History of Rheumatoid Arthritis: Not Applicable 2. Height: 5 ft. 11 in. 180.3 cm. Weight: 229.0 lb. oz. 103.874 kg. Patient's BMI: 32.0 3. Vital Signs: BP: 152/90 Pulse: 59 Resp: 16 Temp: 02 Sat: 97 ECG Mon: 4. Pain Intensity: 5 5. Fall Risk: Dizziness: N Needs help standing or walking: N Fallen in the last 3 months: N Fall risk comments: 6. Patient on Blood Thinner: None 7. History of Hypertension: Y 8. Opioid Therapy greater than 6 weeks: Y Opiate Contract Signed: 11/01/15 9. Risk Assessment Tool Provided: 0/LOW 10. Functional Assessment Tool: 54/70 11. Recreational Drug Use: Never Drug Type: Tobacco Use: Former Smoker Tobacco Type: Amount or Packs/day: How Many Years: Alcohol Use: No Frequency: Quant:
--- NOTE | 2019-04-23 09:27 | HPC ---
[facility] [address] [address] PAIN MANAGEMENT CONSULTATION Name: JASON NICOLAS Room #: REG [facility]#: [id number] Admission: 04/22/19 Attend Phys: Ophelia Chun Discharge: Date of : 56 Report #: [id number] THIS REPORT FOR: cc: Maynor Vilchis David J. DO Hocker,Ophelia MIRELES ~ THIS REPORT FOR: //name// DATE OF SERVICE: 04/22/2019 CHIEF COMPLAINT: Back pain, bilateral knee pain, status post total knee arthroplasty. HISTORY OF PRESENT ILLNESS: This is a very pleasant 58-year-old gentleman who returns to the pain clinic today to discuss his pain medications and for refills. Today, the patient is reporting his pain score at 5/10 in his right knee. He does occasionally have pain in his left knee. It is a burning, dull pain. He feels that when he works too hard, climbs ladders too much and walks, it does increase his pain, but he feels like medicine and ice as well as rest are beneficial. He does report that he had a followup at the Orthopedics office. He did see the PA there who manipulated his knee quite significantly at his visit, after that he did have some swelling in his knee and continues to have slight swelling 2 weeks later, he has been using ice twice a day and does have another followup visit next week with the orthopedic doctor regarding this pain increase and swelling. He had been doing quite well up until that time. The patient is here today having lost 20 pounds since our last visit. He does report that he is drinking less soda and is able to be more active. Since before his surgery, he has lost at least 35 pounds. He feels that does help with his pain control. He is working on slowly decreasing his medications. He does report it was hard to decrease from oxycodone 7.5 to oxycodone 5 and has had some increased pain, but would like to continue to decrease his medications. ALLERGIES: AMLODIPINE, CRESTOR, PENICILLIN, EXFORGE AND NUCYNTA. CURRENT LIST OF MEDICATIONS: Oxycodone 5/325 q.i.d., Ambien, Zestril, Bystolic, and fish oil. PQRS: 1. He has osteoarthritic changes in bilateral knees with replacement. He denies any rheumatoid arthritis. 2. Height is 5 feet 9 inches, weight is 229, BMI is 32. 3. Vital signs, blood pressure 152/90, pulse is 59, respirations 16, oxygen sat is 97%. [address] [address] PAIN MANAGEMENT CONSULTATION Name: JASON NICOLAS Room #: REG [facility]#: [id number] Admission: 04/22/19 Attend Phys: Ophelia Chun Discharge: Date of : 56 Report #: [id number] 4. Pain score is 5/10. 5. Denies dizziness, does not need help walking or standing, has not fallen in the last 3 months. 6. The patient is not on any blood thinners, but does take medicine for hypertension. His opioid therapy is greater than 6 weeks; therefore, an opioid signed contract is on the chart. Risk assessment tool is low. Functional assessment is 54/70. 7. Recreational drug use, he denies. He is a former smoker and does not drink alcohol. According to the prescription monitoring system, the patient is filling appropriately for his medications filling them in a timely fashion. He is due to fill his medicines in 2 weeks. According to the CDC guidelines, his morphine mEq per day is 30 MME. PHYSICAL EXAMINATION: GENERAL: This is alert and orientated 58-year-old gentleman who appears his stated age, placing his current pain score at 5/10. HEENT: Normocephalic, atraumatic. Extraocular eye muscles are intact. Mucous membranes are moist. EXTREMITIES: No clubbing, no cyanosis. He has 1+ edema in his right knee. MUSCULOSKELETAL: Well-healed approximated scar of his right knee with tenderness as well. He has good range of motion and able to flex his knee 150 degrees. His lower extremity strength judged to be 5/5 in all major muscle groups. He has tenderness in his lumbosacral spine. ASSESSMENT: 1. Bilateral knee pain today, right greater than left, post-surgical pain, status post right total knee arthroplasty. 2. General myalgias. 3. General arthralgias. 4. Chronic low back pain. 5. Chronic intractable pain. 6. Opioid dependency. We reviewed the fact that opiate medications are being used to provide analgesia adequate to support activities of daily living, not attempting to achieve a specific pain score on the 0-10 Visual Analog Scale. The current opiate medications are providing sufficient analgesia to allow the patient to participate in activities of daily living. The patient is not exhibiting any aberrant behavior suggestive of drug diversion. The patient is not having any adverse reactions to medications. The patient is not suffering from daytime somnolence or mental acuity changes. The patient is managing opiate-induced constipation with appropriate dyhy-qys-vvoqmay agents and dietary considerations. The patient was counseled on concern for caution with operating a motor vehicle while using opiate medications. [facility] [address] [place] [address] PAIN MANAGEMENT CONSULTATION Name: JASON NIOCLAS Room #: [facility]#: [id number] Admission: 04/22/19 Attend Phys: Ophelia Chun Discharge: Date of : 56 Report #: [id number] PLAN: 1. We discussed treatment options with the patient today. The patient continues to do quite well, but did have a setback where his knee was manipulated and increased pain and swelling. He is following up with his orthopedic doctor next week. He has been icing his knee twice a day. 2. We will refill his medications: Oxycodone 5/325 4 times a day, #120 for today and 4-week release, in the third month, he will decrease to 3 tablets a day, quantity #90 will be sent electronically to his pharmacy by Dr. Mike Lundberg today. The patient does verbalize understanding. The patient will call for an appointment as needed. The patient discharged to home. Dr Mike Lundberg collaborated care today. <ELECTRONICALLY SIGNED> By: Ophelia Chun 04/23/19 0927 1331 215 Ophelia Chun /elder
== END ==
LOC: PAIN 06:50
DX: M25.561 Pain in right knee (principal); M25.562 Pain in left knee; M54.9 Dorsalgia, unspecified; M54.5 Low back pain; M79.18 Myalgia, other site; G89.29 Other chronic pain; Z96.653 Presence of artificial knee joint, bilateral; F11.20 Opioid dependence, uncomplicated; Z88.0 Allergy status to penicillin; Z88.8 Allergy status to other drugs, medicaments and biological substances; Z79.899 Other long term (current) drug therapy

== ENCOUNTER → 2019-07-28 | Outpatient (CLI) | payer OTHER ==
[~2019-07-28] VITALS: Ht 175.3 cm; Wt 101.4 kg
[2019-07-28 10:36] VITALS: BP 133/76
--- NOTE | 2019-07-28 10:50 | NUR ---
Pain Clinic Assessment: 1. History of Osteoarthritis: KNEES History of Rheumatoid Arthritis: Not Applicable 2. Height: 5 ft. 9 in. 175.3 cm. Weight: 223.6 lb. oz. 101.424 kg. Patient's BMI: 33.0 3. Vital Signs: BP: 133/76 Pulse: 53 Resp: 16 Temp: 02 Sat: 100 ECG Mon: 4. Pain Intensity: 6 5. Fall Risk: Dizziness: N Needs help standing or walking: N Fallen in the last 3 months: N Fall risk comments: 6. Patient on Blood Thinner: None 7. History of Hypertension: Y 8. Opioid Therapy greater than 6 weeks: Y Opiate Contract Signed: 11/01/15 9. Risk Assessment Tool Provided: 0/LOW 10. Functional Assessment Tool: 54/70 11. Recreational Drug Use: Never Drug Type: Tobacco Use: Former Smoker Tobacco Type: Amount or Packs/day: How Many Years: Alcohol Use: No Frequency: Quant:
--- NOTE | 2019-07-29 12:30 | HPC ---
[facility] [address] [address] PAIN MANAGEMENT CONSULTATION Name: JASON NICOLAS Room #: REG [facility].#: [id number] Admission: 07/28/19 Attend Phys: Ophelia Chun Discharge: Date of : 56 Report #: [id number] THIS REPORT FOR: cc: Maynor Vilchis David J. DO Hocker, Amanda CNS ~ CC: Mike Lundberg Do DATE OF SERVICE: 07/28/2019 CHIEF COMPLAINT: Bilateral knee pain, status post total knee replacement, arthroplasty and back pain. HISTORY OF PRESENT ILLNESS: This is a very pleasant 59-year-old gentleman who returns to the pain clinic today for refill of his opioid medications that he uses to take for his ongoing bilateral knee pain. He has been recovering since last fall from a total knee arthroplasty on his right knee, that does continue to be problematic. The patient does favor that knee and it has caused some pain in his lateral aspect of his right foot, now complaining of plantar fasciitis discomfort. He does have ongoing left knee pain as well. He reports to me that he has stopped taking his Cymbalta since we last seen him, he did not feel that it was beneficial in helping with his pain. Today, his pain score is 6/10. 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 At home, he does use ice and rest as well as his medication and those are beneficial. He denies any problems with constipation or daytime somnolence as a result of his opioid medications. ALLERGIES: AMLODIPINE, CRESTOR, PENICILLIN, VALSARTAN AND NUCYNTA. MEDICATIONS: Oxycodone 5/325 t.i.d., Ambien, lisinopril, Bystolic, and fish oil. PQRS: 1. He does have a history of osteoarthritis in his bilateral knees. He denies any rheumatoid arthritis. 2. Height is 5 feet 9 inches, weight is 223, it decrease of 6 pounds since we have last seen him. His BMI is 33. 3. Vital signs; blood pressure 133/76, pulse is 53, respirations 16, and oxygen sat is 100%. 4. Pain score 6/10. 5. Denies dizziness, does not need help walking or standing, has not fallen in the last 3 months. 6. The patient is not on any blood thinners, but does take medicine for hypertension. Opioid therapy is greater than 6 weeks; therefore, an opioid signed contract is on the chart. Risk [place] [address] PAIN MANAGEMENT CONSULTATION Name: FIDENCIOJASON Quirino Room #: REG [facility]#: [id number] Admission: 07/28/19 Attend Phys: Ophelia Chun Discharge: Date of : 56 Report #: [id number] is 54/70. 7. Recreational drug use, he denies. He is a former smoker and does not drink alcohol. According to the prescription monitoring system, his morphine milliequivalent is 22 MMEs. He is feeling appropriately from Dr. Mike Lundberg on a monthly fill. There is a recent drug screen on the chart that is appropriate as well for his medications. PHYSICAL EXAMINATION: GENERAL: This is alert and orientated, well-developed, well-nourished 59-year-old gentleman who appears his stated age, placing his current pain score at 6/10. HEENT: Normocephalic and atraumatic. Extraocular eye muscles are intact. He is wearing a mask today. EXTREMITIES: No clubbing, no cyanosis, no edema present today. MUSCULOSKELETAL: Well-healed approximated scar on his right knee, does have tenderness with flexion and extension as well as standing tenderness in his lateral aspect of his right foot. The patient's lower extremity strength judged to be 5/5 in all major muscle groups. Tenderness is in his lumbosacral region of his spine as well. ASSESSMENT: 1. Bilateral knee pain, right greater than left. 2. General myalgias. 3. General arthralgias. 4. Chronic low back pain. 5. Opioid dependency. We reviewed the fact that opiate medications are being used to provide analgesia adequate to support activities of daily living, not attempting to achieve a specific pain score on the 0-10 Visual Analog Scale. The current opiate medications are providing sufficient analgesia to allow the patient to participate in activities of daily living. The patient is not exhibiting any aberrant behavior suggestive of drug diversion. The patient is not having any adverse reactions to medications. The patient is not suffering from daytime somnolence or mental acuity changes. The patient is managing opiate-induced constipation with appropriate zfds-yvw-ecavwsd agents and dietary considerations. The patient was counseled on concern for caution with operating a motor vehicle while using opiate medications. A physical exam was performed and the patient's functional status was evaluated. All patients with back pain were advised against the bed rest greater than 4 days and were advised to return to normal activities. Pain score assessment was noted and the treatment plan was reviewed with the patient. All current medications, both prescribed and OTC were reviewed and reconciled on the [address] [address] PAIN MANAGEMENT CONSULTATION Name: JASON NICOLAS Room #: [facility]#: [id number] Admission: 07/28/19 Attend Phys: Ophelia Chun Discharge: Date of : 56 Report #: [id number] electronic medical record. Tobacco screening was accomplished and smoking cessation was advised when indicated. BMI was noted and diet/exercise modification was recommended for all patients following outside normal parameters. I reviewed with the patient today their responsibilities to safeguard prescription medications, reviewed their responsibility to utilize medications only as prescribed by the physician. They are to seek and receive pain medications only from 1 physician group ( [facility]). They are to use 1 pharmacy and keep the clinic informed if they change pharmacies. Their responsibilities include making followup visits in a timely fashion and to avoid abrupt discontinuation of medication usage. Their responsibilities further include bringing their medications (bottles from the pharmacy with residual pills) to the visit for possible confirmation of pill counts and the patient understands it is their responsibility to submit to random drug screens to ensure both that the medications prescribed are present, and that no other controlled substances are present. All prescriptions provided today were generated electronically. PLAN: 1. We discussed treatment options with the patient today. The patient finds his opioid medications beneficial in helping control his pain. We have been slowly decreasing his medicines over the last few months. Currently, he is on Percocet 5/325, 90 tablets, which he has been on for 1 month. We will continue his current medication for the next 3 months. Scripts given for #90, for today for an 8-week release. These will be sent electronically to his pharmacy. 2. I encouraged the patient to try some Voltaren gel on his right foot that he is complaining of plantar fasciitis. He was given this diagnosis by his surgeon. I encouraged the patient to use this multiple times a day to see if this decreases some of his pain. 3. The patient is seen in collaboration with Dr. Mike Lundberg. The patient will return in 3 months for medication refills. <ELECTRONICALLY SIGNED> By: Ophelia Chun 07/29/19 1230 [id number] Ophelia Chun /nt
== END ==
LOC: PAIN 06:56
DX: M25.561 Pain in right knee (principal); M25.562 Pain in left knee; M79.10 Myalgia, unspecified site; M25.50 Pain in unspecified joint; M54.5 Low back pain; F11.20 Opioid dependence, uncomplicated; Z96.659 Presence of unspecified artificial knee joint; Z88.0 Allergy status to penicillin; Z88.2 Allergy status to sulfonamides; Z88.8 Allergy status to other drugs, medicaments and biological substances

== ENCOUNTER → 2019-08-26 | Outpatient (CLI) | payer OTHER ==
[~2019-08-26] VITALS: Ht 175.3 cm; Wt 102.6 kg
[2019-08-26 13:45] VITALS: BP 138/83
--- NOTE | 2019-08-26 13:52 | NUR ---
Pain Clinic Assessment: 1. History of Osteoarthritis: KNEES History of Rheumatoid Arthritis: Not Applicable 2. Height: 5 ft. 9 in. 175.3 cm. Weight: 226.2 lb. oz. 102.604 kg. Patient's BMI: 33.4 3. Vital Signs: BP: 138/83 Pulse: 53 Resp: 16 Temp: 02 Sat: 100 ECG Mon: 4. Pain Intensity: 7 5. Fall Risk: Dizziness: N Needs help standing or walking: N Fallen in the last 3 months: N Fall risk comments: 6. Patient on Blood Thinner: None 7. History of Hypertension: Y 8. Opioid Therapy greater than 6 weeks: Y Opiate Contract Signed: 11/01/15 9. Risk Assessment Tool Provided: 0/LOW 10. Functional Assessment Tool: 54/70 11. Recreational Drug Use: Never Drug Type: Tobacco Use: Former Smoker Tobacco Type: Cigarettes Amount or Packs/day: 1 How Many Years: 8 Alcohol Use: No Frequency: Quant:
--- NOTE | 2019-09-08 09:14 | HPC ---
[facility] [place] [address] PAIN MANAGEMENT CONSULTATION Name: JASON NICOLAS Room #: REG [facility].#: [id number] Admission: 08/26/19 Attend Phys: Mike Lundberg DO Discharge: Date of : 56 Report #: [id number] THIS REPORT FOR: cc: Maynor Vilchis David J. DO Johnson, James E. DO ~ DATE OF SERVICE: 08/26/2019 REFERRING PHYSICIAN: Dr. Mike Allen CHIEF COMPLAINT: Bilateral knee pain, status post right total knee arthroplasty, right calcaneal pain. HISTORY OF PRESENT ILLNESS: As you know, the patient is a 59-year-old male who returns today in followup visit to discuss concerns of right calcaneal pain. He is able to localize pain directly over the insertion site of the plantar aponeurosis on the right side. The patient is noted to have changes in his lower extremity positioning after the total knee arthroplasty on the right, which is where he began to experience this right calcaneal/heel pain. He returns today in followup visit to discuss his concerns about this issue as well as to discuss the possibility of receiving refill on his medications. He is taking Percocet 5/325 three times a day for pain control. He states that his medications are working beneficially for his chronic pain, but has a little or no effect on his right foot pain. He states that during the day it feels as if he is walking on a marble or a rock in his shoe. He has made changes in his footwear but did not notice improvement. He returns to discuss his options for treatment for the right foot pain as well as continuation of medication management. ALLERGIES: AMLODIPINE, CRESTOR, PENICILLIN, VALSARTAN and NUCYNTA. CURRENT MEDICATIONS: Percocet 5/325 t.i.d. p.r.n. pain, Ambien 10 mg p.o. at bedtime, lisinopril 10 mg p.o. every day, Bystolic 5 mg per day, omega-3 fish oil 1 tab per day. SOCIAL HISTORY: The patient denies tobacco, alcohol, IV or illicit drug use. He is working, not receiving workmen's compensation, unaccompanied today. IMAGING: No new imaging available. PHYSICAL EXAMINATION: VITAL SIGNS: Blood pressure 138/83, pulse is 53, respiratory rate 16 and unlabored. The patient is 100% on room air. Height 5 feet 9 inches tall, weight 226.2 pounds, BMI calculated 33.4. GENERAL: Well-developed, well-nourished, well-hydrated 59[place] [address] PAIN MANAGEMENT CONSULTATION Name: JASON NICOLAS Quirino Room #: [facility] [id number] Admission: 08/26/19 Attend Phys: Mike Lundberg DO Discharge: Date of : 56 Report #: [id number] appearing stated age, pain is rated at 7/10 involving the calcaneus on the right. HEENT: Normocephalic, atraumatic. Pupils equal, round and reactive. Speech is fluent. EXTREMITIES: Show no clubbing, no cyanosis, no edema. MUSCULOSKELETAL: The patient has palpatory tenderness over the distal portion of the calcaneus at the insertion site of the plantar aponeurosis. There is noted tenderness to palpation. No ecchymosis over the region. There is a reduction in the patient's arch of the foot on this side. Active and passive range of motion of right knee causes no significant change in overall pain. ASSESSMENT: 1. Bilateral knee pain, status post right knee arthroplasty with continued left knee pain and intermittent right knee pain. 2. Plantar fasciitis. 3. Chronic intractable pain. PLAN: 1. Based on today's physical exam and history the patient has provided, the description the patient uses in regards to pain as well as location of symptoms and the provocating factors, the likely source of the patient's right foot pain is a bone spur at the calcaneus consistent with strain on the plantar aponeurosis insertion site. I feel that the patient would benefit from evaluation from Podiatry for possible orthotics to correct the patient's current supination and possibly even discuss surgical options to address the osteophyte at this level. The patient is agreeable to meet with Podiatry. I have provided a referral to the patient today. 2. We have recommended the patient to continue on the oxycodone/acetaminophen 5/325 for which he is taking 3 times a day for baseline pain control. Ultimately, we will come off these medications, but at this time, I recommend he continue at least for the next couple of months with plans to try to wean on his own by the next visit we see the patient. He is agreeable with this plan. 3. We reviewed the fact that opiate medications are being used to provide analgesia adequate to support activities of daily living, not attempting to achieve a specific pain score on the 0-10 Visual Analog Scale. The current opiate medications are providing sufficient analgesia to allow the patient to participate in activities of daily living. The patient is not exhibiting any aberrant behavior suggestive of drug diversion. The patient is not having any adverse reactions to medications. The patient is not suffering from daytime somnolence or mental acuity changes. The patient is managing opiate-induced constipation with appropriate gtrr-iir-ifjzwjz agents and dietary considerations. The patient was counseled on concern for caution with operating a motor vehicle while using opiate medications. A physical exam was performed and the patient's functional status was evaluated. All patients with back pain were advised against the bed rest greater than 4 [facility] [address] [place] [address] PAIN MANAGEMENT CONSULTATION Name: JASON NICOLAS Quirino Room #: REG [facility]..#: [id number] Admission: 08/26/19 Attend Phys: Mike Lundberg DO Discharge: Date of : 56 Report #: [id number] days and were advised to return to normal activities. Pain score assessment was noted and the treatment plan was reviewed with the patient. All current medications, both prescribed and OTC were reviewed and reconciled on the electronic medical record. Tobacco screening was accomplished and smoking cessation was advised when indicated. BMI was noted and diet/exercise modification was recommended for all patients following outside normal parameters. I reviewed with the patient today their responsibilities to safeguard prescription medications, reviewed their responsibility to utilize medications only as prescribed by the physician. They are to seek and receive pain medications only from 1 physician group ([facility]). They are to use 1 pharmacy and keep the clinic informed if they change pharmacies. Their responsibilities include making followup visits in a timely fashion and to avoid abrupt discontinuation of medication usage. Their responsibilities further include bringing their medications (bottles from the pharmacy with residual pills) to the visit for possible confirmation of pill counts and the patient understands it is their responsibility to submit to random drug screens to ensure both that the medications prescribed are present, and that no other controlled substances are present. All prescriptions provided today were generated electronically. 4. The patient was provided a prescription of Percocet 5/325 one tab p.o. q. 8 hours p.r.n. for pain. Given the patient #90 to release today, 4 weeks from today, 8 weeks from today, 3 months' worth of medication. 5. The patient will follow up with our clinic for medication management in 3 months. He can return at any time if he wishes to discuss interventional treatment to address his plantar aponeurosis generated pain. <ELECTRONICALLY SIGNED> By: Mike Lundberg DO 09/08/19 0914 [id number] Mike Lundberg DO /nt
== END ==
LOC: PAIN 06:49
PROVIDERS: ATTEND Anesthesiology Pain Medicine
DX: M72.2 Plantar fascial fibromatosis (principal); Z79.899 Other long term (current) drug therapy; Z88.8 Allergy status to other drugs, medicaments and biological substances

== ENCOUNTER → 2019-11-18 | Outpatient (CLI) | payer OTHER ==
[~2019-11-18] VITALS: Ht 175.3 cm; Wt 107.7 kg
--- NOTE | ~2019-11-18 | HPC ---
[facility] [address] [place] [address] PAIN MANAGEMENT CONSULTATION Name: JASON NICOLAS Room #: REG [facility].#: [id number] Admission: 11/18/19 Attend Phys: Ophelia Chun Discharge: Date of : 56 Report #: [id number] THIS REPORT FOR: cc: Maynor Vilchis David J. DO Hocker,Ophelia MIRELES ~ CC: Ophelia Lundberg DO DATE OF SERVICE: 11/18/2019 REFERRING PHYSICIAN: Mike Allen DO CHIEF COMPLAINT: Bilateral knee pain, post right total knee arthroplasty, bilateral foot pain. HISTORY OF PRESENT ILLNESS: This is a 59-year-old gentleman who returns today to the pain clinic for medication management that he uses to help treat his ongoing bilateral knee pain. The right continues to have some slight swelling after working all day, climbing stairs and ladders. He has recently developed right foot pain as well. He has been seeing a commercial portfolio manager, where he has undergone several injections and has had new orthotics placed in his shoes. He feels that it is slowly improving, but at times, that is his most problematic area. Today, he is reporting a pain score of 5/10, burning, constant aching pain, feels again like working too long hours as well as ladders have increased his pain. Ice, medication and resting have been beneficial. He denies any problems with daytime somnolence or constipation as a result of his medications. Today, he is requesting refills of his medication management. ALLERGIES: EXFORGE, CRESTOR, PENICILLIN AND NUCYNTA. CURRENT LIST OF MEDICATIONS: Oxycodone 5/325 t.i.d. p.r.n., Ambien, Bystolic, fish oil and Voltaren gel. PQRS: 1. He has osteoarthritic changes in his knees. Denies any rheumatoid arthritis. 2. Height is 5 feet 9 inches, weight is 237, BMI is 35. 3. Blood pressure 179/77, pulse is 60, respirations 18, oxygen sat is 100. 4. Pain score is 5/10. 5. Denies dizziness, does not need help walking or standing, has not fallen in the last 3 months. 6. The patient is not on any blood thinners, but does take medicine for hypertension. Opioid therapy is greater than 6 weeks; therefore, an opioid signed contract is on the chart. [address] [address] PAIN MANAGEMENT CONSULTATION Name: JASON NICOLAS [facility] [id number] Admission: 11/18/19 Attend Phys: Ophelia Chun Discharge: Date of : 56 Report #: [id number] 7. Risk assessment is low. Functional assessment is 54/70. 8. Recreational drug use, he denies. He is a former smoker and does not drink alcohol. According to the prescription monitoring system, the patient is filling appropriately for his medication in a timely fashion. He is due to fill his medicines this week. His morphine mEq according to the CDC guidelines is 22 MMEs. There is a drug screen on the chart that is appropriate for his medicines as well. PHYSICAL EXAMINATION: GENERAL: This is alert and orientated 59-year-old gentleman who appears his stated age, placing his current pain score at 5/10. HEENT: Normocephalic, atraumatic. Pupils equal, round and reactive to light. He is wearing a mask and glasses today. EXTREMITIES: No clubbing, no cyanosis. Slight edema in his right knee. MUSCULOSKELETAL: He has increasing right knee pain with bending. He has ongoing right foot pain that has increased over the distal portion of the calcaneus on the right knee with notable tenderness. He is wearing orthotics in both shoes today. ASSESSMENT: 1. Bilateral knee pain, status post knee arthroplasty. 2. Plantar fasciitis. 3. Chronic intractable pain. 4. Opioid medication management under terms of written agreement. PLAN: 1. We discussed treatment options with the patient today. I encouraged the patient to try his Voltaren gel on his right foot as well as his ongoing right knee pain, especially prior to going to bed at night to see if this is beneficial in decreasing some of his pain. We will send prescriptions to the pharmacy for refills of this medication. 2. The patient continues to wear orthotic braces in bilateral shoes to see if this is helping decrease some of his plantar fasciitis pain as well as injections. The last injection was beneficial for 3 weeks. He will schedule another injection in the near future with his commercial portfolio manager. 3. The patient feels that his knee, in postoperative one year, is finally decreasing except after strenuous days of walking at work. He continues his Percocet on an as needed basis, no more than 3 tablets a day. We will have Dr. Mike Lundberg send these electronically and hopeful when his plantar fasciitis improves, will be able to decrease this medicine to 2 a day and hopefully off. The patient is agreeable with this plan of care. Script sent by Dr. Mckeon [address] [address] PAIN MANAGEMENT CONSULTATION Name: JASON NICOLAS Room #: [facility] Elías#: [id number] Admission: 11/18/19 Attend Phys: Ophelia Chun Discharge: Date of : 56 Report #: [id number] Toño for oxycodone 5/325, #90 to the pharmacy for 3 months. 4. The patient is seen in collaboration with Dr. Mike Lundberg. By: [id number] Ophelia Chun /elder
[2019-11-18 09:58] VITALS: BP 179/77
--- NOTE | 2019-11-18 10:16 | NUR ---
Pain Clinic Assessment: 1. History of Osteoarthritis: KNEES History of Rheumatoid Arthritis: Not Applicable 2. Height: 5 ft. 9 in. 175.3 cm. Weight: 237.4 lb. oz. 107.684 kg. Patient's BMI: 35.0 3. Vital Signs: BP: 179/77 Pulse: 60 Resp: 18 Temp: 02 Sat: 100 ECG Mon: 4. Pain Intensity: 5 5. Fall Risk: Dizziness: N Needs help standing or walking: N Fallen in the last 3 months: N Fall risk comments: 6. Patient on Blood Thinner: None 7. History of Hypertension: Y 8. Opioid Therapy greater than 6 weeks: Y Opiate Contract Signed: 11/01/15 9. Risk Assessment Tool Provided: 0/LOW 10. Functional Assessment Tool: 54/70 11. Recreational Drug Use: Never Drug Type: Tobacco Use: Former Smoker Tobacco Type: Amount or Packs/day: How Many Years: Alcohol Use: No Frequency: Quant:
== END ==
LOC: PAIN 06:52
PROVIDERS: ATTEND Clinical Nurse Specialist Adult Health
DX: M25.561 Pain in right knee (principal); M25.562 Pain in left knee; M79.672 Pain in left foot; M79.671 Pain in right foot; M72.2 Plantar fascial fibromatosis; G89.29 Other chronic pain; F11.20 Opioid dependence, uncomplicated; Z88.8 Allergy status to other drugs, medicaments and biological substances; Z96.653 Presence of artificial knee joint, bilateral; Z79.899 Other long term (current) drug therapy

== ENCOUNTER → 2020-02-24 | Outpatient (CLI) | payer OTHER ==
[~2020-02-24] VITALS: Ht 182.9 cm; Wt 108.5 kg
[~2020-02-24] MED LIST changes: +MOBIC7.5 MG PO
[2020-02-24 12:36] VITALS: BP 156/88
--- NOTE | 2020-02-24 12:45 | NUR ---
Pain Clinic Assessment: 1. History of Osteoarthritis: KNEES History of Rheumatoid Arthritis: Not Applicable 2. Height: 6 ft. 0 in. 182.9 cm. Weight: 239.2 lb. oz. 108.501 kg. Patient's BMI: 32.4 3. Vital Signs: BP: 156/88 Pulse: 52 Resp: 16 Temp: 02 Sat: 97 ECG Mon: 4. Pain Intensity: 5 5. Fall Risk: Dizziness: N Needs help standing or walking: N Fallen in the last 3 months: N Fall risk comments: 6. Patient on Blood Thinner: None 7. History of Hypertension: Y 8. Opioid Therapy greater than 6 weeks: Y Opiate Contract Signed: 11/01/15 9. Risk Assessment Tool Provided: 0/LOW 10. Functional Assessment Tool: 54/70 11. Recreational Drug Use: Never Drug Type: Tobacco Use: Former Smoker Tobacco Type: Amount or Packs/day: How Many Years: Alcohol Use: No Frequency: Quant:
--- NOTE | 2020-02-25 08:14 | HPC ---
[facility] [address] [address] PAIN MANAGEMENT CONSULTATION Name: JASON NICOLAS Room #: REG [facility] Elías#: [id number] Admission: 02/24/20 Attend Phys: Ophelia Chun Discharge: Date of : 56 Report #: [id number] THIS REPORT FOR: cc: Maynor Vilchis David J. DO Hocker,Ophelia MIRELES ~ DATE OF SERVICE: 02/24/2020 CHIEF COMPLAINT: Bilateral knee pain post right total knee arthroplasty and bilateral foot pain. HISTORY OF PRESENT ILLNESS: This is a pleasant 59-year-old gentleman who returns to the pain clinic today for refill of his medications. Today, he is reporting a pain score of 5/10, most severe in his feet bilaterally on left greater than the right. He is suffering from plantar fasciitis and has recently had two injections that were beneficial, though short-lived. He reports today that his correctional manager is wondering about an anti-inflammatory that he may take on as needed basis to see if this is beneficial in decreasing some of his inflammation in his feet. The patient does report his pain is worse at the end of the day after he has been busy working. He is trying not to go up and down ladders, but some days this is unavoidable. Overall, he feels that the oxycodone and Voltaren gel as well as ice and rest are helpful. He denies any problems with constipation as a result of his opioid medications. ALLERGIES: AMLODIPINE, CRESTOR, PENICILLIN, VALSARTAN AND NUCYNTA. CURRENT LIST OF MEDICATIONS: Oxycodone 5/325 p.r.n., Voltaren gel, Ambien, Bystolic, and fish oil. PQRS: 1. He has osteoarthritic changes in his knees bilaterally. Denies any rheumatoid arthritis. 2. Height is 6 feet, weight is 239, BMI is 32. 3. Vital signs; blood pressure 156/88, pulse 52, respirations 16, oxygen sat is 97%. 4. Pain score is 5/10. 5. Fall risk. Denies dizziness, does not need help walking or standing, has not fallen in the last 3 months. 6. The patient is not on any blood thinners, but does take medicine for hypertension. 7. Opioid therapy is greater than 6 weeks; therefore, an opioid signed contract is on the chart. Risk assessment is low. Functional assessment is 54/70. 8. Recreational drug use, he denies. He is a former smoker and he does not drink alcohol. According to the prescription monitoring system, he is filling appropriately in [address] [address] PAIN MANAGEMENT CONSULTATION Name: JASON NICOLAS [facility] [id number] Admission: 02/24/20 Attend Phys: Ophelia Chun Discharge: Date of : 56 Report #: [id number] a timely fashion, due to fill his medications next week. Morphine milliequivalent is 22 MMEs per day. PHYSICAL EXAMINATION: GENERAL: This is alert and orientated 59-year-old who is well-developed, well-nourished, well-hydrated, appears his stated age, placing his current pain score at 5/10. HEENT: Normocephalic, atraumatic. Extraocular eye muscles are intact. He is wearing a mask and glasses. EXTREMITIES: No clubbing, no cyanosis. He has slight edema in his right foot and ankle. MUSCULOSKELETAL: Ongoing right foot pain in the distal portion of his calcaneus. He has tenderness that is ongoing in his right knee from previous replacement. He has a slightly antalgic gait. ASSESSMENT: 1. Bilateral knee pain, status post knee arthroplasty and total replacement. 2. Plantar fasciitis. 3. Chronic intractable pain. 4. Opioid management under written agreement. We reviewed the fact that opiate medications are being used to provide analgesia adequate to support activities of daily living, not attempting to achieve a specific pain score on the 0-10 Visual Analog Scale. The current opiate medications are providing sufficient analgesia to allow the patient to participate in activities of daily living. The patient is not exhibiting any aberrant behavior suggestive of drug diversion. The patient is not having any adverse reactions to medications. The patient is not suffering from daytime somnolence or mental acuity changes. The patient is managing opiate-induced constipation with appropriate hafo-bdx-bubowzt agents and dietary considerations. The patient was counseled on concern for caution with operating a motor vehicle while using opiate medications. PLAN: 1. We discussed treatment options with the patient today. The patient did see Podiatry where he was given orthotics. It was causing increasing pain, especially on his left hip and knee. He has removed those and since doing so, his pain is relieved. He does continue his Voltaren gel, though only sparingly. I have encouraged him to use this three times a day, morning as soon as he gets home from work and at bedtime to see if that does help relieve some of the swelling and discomfort from his plantar fasciitis. 2. Per the correctional manager request, he was asked to have him a low dose anti-inflammatory that may help with his plantar fasciitis, though he does have one kidney. I have encouraged him to take on a very p.r.n. basis, meloxicam 7.5. This is a low dose of an anti-inflammatory that may help systemically. Patient instructed not to use it on the days he does use his Voltaren gel and [facility] [address] [place] [address] PAIN MANAGEMENT CONSULTATION Name: JASON NICOLAS Room #: REG [facility]#: [id number] Admission: 02/24/20 Attend Phys: Ophelia Chun Discharge: Date of : 56 Report #: [id number] again not on a daily basis. Script sent electronically. 3. Dr. Mike Lundberg will continue him on his oxycodone , #90. This will be sent for [address] Mike Lundberg did collaborate care today. <ELECTRONICALLY SIGNED> By: Ophelia Chun 02/25/20 0814 [id number] Ophelia Chun /elder
== END ==
LOC: PAIN 06:50
PROVIDERS: ATTEND Clinical Nurse Specialist Adult Health
DX: G89.4 Chronic pain syndrome (principal); M72.2 Plantar fascial fibromatosis; Z96.653 Presence of artificial knee joint, bilateral; Z79.891 Long term (current) use of opiate analgesic; Z88.0 Allergy status to penicillin; Z88.1 Allergy status to other antibiotic agents

== ENCOUNTER → 2020-05-31 | Outpatient (CLI) | payer OTHER ==
[~2020-05-31] VITALS: Ht 182.9 cm; Wt 110.2 kg
[~2020-05-31] MED LIST changes: +NEURONTIN 300M300 M2 PO; +OXYCODONE-APAP1 EAC4 PO
[2020-05-31 10:43] VITALS: BP 139/87
--- NOTE | 2020-05-31 10:51 | NUR ---
Pain Clinic Assessment: 1. History of Osteoarthritis: KNEES History of Rheumatoid Arthritis: Not Applicable 2. Height: 6 ft. 0 in. 182.9 cm. Weight: 243.0 lb. oz. 110.224 kg. Patient's BMI: 32.9 3. Vital Signs: BP: 139/87 Pulse: 100 Resp: 18 Temp: 02 Sat: 97 ECG Mon: 4. Pain Intensity: 7 5. Fall Risk: Dizziness: N Needs help standing or walking: N Fallen in the last 3 months: N Fall risk comments: 6. Patient on Blood Thinner: None 7. History of Hypertension: Y 8. Opioid Therapy greater than 6 weeks: Y Opiate Contract Signed: 11/01/15 9. Risk Assessment Tool Provided: 0/LOW 10. Functional Assessment Tool: 45/70 11. Recreational Drug Use: Never Drug Type: Tobacco Use: Former Smoker Tobacco Type: Amount or Packs/day: How Many Years: Alcohol Use: No Frequency: Quant:
--- NOTE | 2020-06-01 07:49 | HPC ---
[facility] [address] [address] PAIN MANAGEMENT CONSULTATION Name: JASON NICOLAS Room #: REG [facility].#: [id number] Admission: 05/31/20 Attend Phys: Ophelia Chun Discharge: Date of : 56 Report #: [id number] THIS REPORT FOR: cc: Maynor Vilchis David J. DO Hocker,Ophelia MIRELES ~ DATE OF SERVICE: 05/31/2020 CHIEF COMPLAINT: Bilateral knee pain, post-right total knee arthroplasty and bilateral foot pain. HISTORY OF PRESENT ILLNESS: This is a 60-year-old gentleman who returns to the pain clinic today for renewal of his medications. Today, he is reporting increasing pain in his right foot and continued pain in his right knee. He describes it as a burning, constant, throbbing sensation. He does report that at night his foot is slightly swollen from being on it all day at work. This causes significant pain as well. The patient believes the medications are beneficial in helping his knee pain as well as ice and resting. He reports over the weekend his pain is decreased when he is not as physically active. The patient reports he is continuing to see the gold burnisher for his foot pain that they have diagnosed him as plantar fasciitis. He has tried a different pair of shoes as well as having periodic injections that have been beneficial only for a few days. He is frustrated that his pain continues to worsen in his feet. ALLERGIES: AMLODIPINE, CRESTOR, PENICILLIN, VALSARTAN, NUCYNTA. CURRENT LIST OF MEDICATIONS: Lisinopril, oxycodone 5/325 t.i.d., meloxicam 7.5 daily, Voltaren gel p.r.n., Ambien, Bystolic and fish oil. PATIENT'S PQRS: 1. He has osteoarthritic changes in his knees. Denies any rheumatoid arthritis. 2. Height is 6 feet, weight is 243, BMI is 32. 3. Vital signs 139/87, pulse is 100, respirations 18, oxygen sat is 97%. 4. Pain score is 7/10. 5. Denies dizziness, does not need help walking or standing, has not fallen in the last 3 months. 6. The patient is not on any blood thinners, but does take medicine for hypertension. His opioid therapy is greater than 6 weeks; therefore, an opioid signed contract is on the chart. Risk assessment is low. Functional assessment is 45/70. 7. Recreational drug use, he denies. He is not a smoker and [place] [address] PAIN MANAGEMENT CONSULTATION Name: JASON NICOLAS Room #: REG [facility]ona [facility]#: [id number] Admission: 05/31/20 Attend Phys: Ophelia Chun Discharge: Date of : 56 Report #: [id number] According to the prescription monitoring system, he is filling appropriately. His morphine milliequivalent is 22 MME. He has a urine drug screen on the chart that is appropriate as well. PHYSICAL EXAMINATION: GENERAL: This is alert and orientated, well-developed, well-nourished, slightly obese 60-year-old gentleman who appears his stated age, placing his current pain score at 7/10. HEENT: Normocephalic, atraumatic. Pupils equal, round and reactive to light. Speech is fluent. He is wearing a mask. EXTREMITIES: No clubbing, no cyanosis. Slight edema in his right foot. MUSCULOSKELETAL: The patient has tenderness over the distal port of his calcaneus of his right foot. There is tenderness to palpation with slight edema and also tenderness in his arch of his right foot. Tenderness continues on the lateral aspect of his right knee. Active and passive range of motion of his knee causes no change. Lower extremity strength is symmetrical at 5/5. ASSESSMENT: 1. Bilateral knee pain, status post right knee arthroplasty. 2. Plantar fasciitis. 3. Ongoing right foot pain. 4. Chronic intractable pain. 5. Complicated opioid medication management under scheduled opioid medications. We reviewed the fact that opiate medications are being used to provide analgesia adequate to support activities of daily living, not attempting to achieve a specific pain score on the 0-10 Visual Analog Scale. The current opiate medications are providing sufficient analgesia to allow the patient to participate in activities of daily living. The patient is not exhibiting any aberrant behavior suggestive of drug diversion. The patient is not having any adverse reactions to medications. The patient is not suffering from daytime somnolence or mental acuity changes. The patient is managing opiate-induced constipation with appropriate lgwy-uyn-fiqidhk agents and dietary considerations. The patient was counseled on concern for caution with operating a motor vehicle while using opiate medications. PLAN: 1. We discussed treatment options with the patient today. We had started him on meloxicam at his last visit to see if this is beneficial in helping with some of his overall arthritic issues in his knees. He does believe that this has been beneficial and does report that his renal function has not increased, though he does continue to take this on a daily basis. Script will be sent for 7.5 meloxicam, #30, with 2 additional refills. He does continue to use Voltaren gel on as needed basis. 2. We will continue him on his Percocet 5/325, #90. This will be sent electronically by Dr. Mike Lundberg for 3 months. [facility] [address] [place] [address] PAIN MANAGEMENT CONSULTATION Name: JASON NICOLAS Room #: REG [facility]#: [id number] Admission: 05/31/20 Attend Phys: Ophelia Chun Discharge: Date of : 56 Report #: [id number] 3. We did discuss his ongoing right foot pain. He does describe it as a burning sensation at times as well as sharp and throbbing; encouraged him to elevate it as much as possible, but we did discuss starting a neuropathic pain medicine to see if this is beneficial. We will start him on Neurontin 300 mg at bedtime for 2 weeks. If that is beneficial, he will continue on that dose. If he notices still continued pain, he will take one after work and then again at bedtime. Scripts sent with refills. The patient is seen in collaboration with Dr. Mike Lundberg. Time spent in consultation, reviewing imaging, reviewing recent studies and physician reports, physical exam in correlation of physical findings and possible treatment 14 minutes. Time spent in preparation for appointment, reviewing prescription monitoring system, reviewing previous records and proposed treatment options and current medications 5 minutes. Time spent in preparation and sending electronic prescriptions with collaborating physician, Dr. Mike Lundberg, documentation of visit and plan of care 7 minutes. Total time spent 26 minutes. <ELECTRONICALLY SIGNED> By: Ophelia Chun 06/01/[address] [place] [address] Adiel elder
== END ==
LOC: PAIN 06:58
PROVIDERS: ATTEND Clinical Nurse Specialist Adult Health
DX: M25.561 Pain in right knee (principal); M25.562 Pain in left knee; M79.672 Pain in left foot; M72.2 Plantar fascial fibromatosis; M79.671 Pain in right foot; G89.29 Other chronic pain; F11.20 Opioid dependence, uncomplicated; Z88.8 Allergy status to other drugs, medicaments and biological substances; Z79.899 Other long term (current) drug therapy

== ENCOUNTER → 2020-08-30 | Outpatient (CLI) | payer OTHER ==
[~2020-08-30] VITALS: Ht 182.9 cm; Wt 112.2 kg
[~2020-08-30] MED LIST changes: +NEURONTIN300 MG PO
[2020-08-30 11:00] VITALS: BP 157/92
--- NOTE | 2020-08-30 11:18 | NUR ---
Pain Clinic Assessment: 1. History of Osteoarthritis: KNEES History of Rheumatoid Arthritis: Not Applicable 2. Height: 6 ft. 0 in. 182.9 cm. Weight: 247.4 lb. oz. 112.220 kg. Patient's BMI: 33.5 3. Vital Signs: BP: 157/92 Pulse: 51 Resp: 18 Temp: 02 Sat: 97 ECG Mon: 4. Pain Intensity: 6 5. Fall Risk: Dizziness: N Needs help standing or walking: N Fallen in the last 3 months: N Fall risk comments: 6. Patient on Blood Thinner: None 7. History of Hypertension: Y 8. Opioid Therapy greater than 6 weeks: Y Opiate Contract Signed: 11/01/15 9. Risk Assessment Tool Provided: 0/LOW 10. Functional Assessment Tool: 45/70 11. Recreational Drug Use: Never Drug Type: Tobacco Use: Former Smoker Tobacco Type: Amount or Packs/day: How Many Years: Alcohol Use: No Frequency: Quant:
--- NOTE | 2020-08-31 08:53 | HPC ---
[facility] [place] [address] PAIN MANAGEMENT CONSULTATION Name: JASON NICOLAS Room #: REG Tona Mckinley#: [id number] Admission: 08/30/20 Attend Phys: Ophelia Chun Discharge: Date of : 56 Report #: [id number] THIS REPORT FOR: cc: Maynor Vilchis David J. DO Hocker, Amanda CNS ~ DOC #: [id number] cc: Mike Lundberg DO, David J. Kricsfeld, DO Amanda Hocker, HUMBERTO DATE OF SERVICE: 08/30/2020 CHIEF COMPLAINT: Bilateral knee pain, post total right knee arthroplasty and bilateral foot pain. HISTORY OF PRESENT ILLNESS: This is a 60-year-old gentleman who returns to the pain clinic to discuss his ongoing current pain issues. Today, the patient is reporting most problematic areas in his right foot, describing it as a constant burning sensation, especially when he is walking and going up ladders. He had had injections from his chain link fence installer that were beneficial for a short period, but now he does believe the gabapentin that we have prescribed for him has been more beneficial in relieving it long-term. He had attempted to utilize a brace and different shoes, but that was not helpful and caused increasing hip pain. The patient is hopeful that the pain will slowly go away from his plantar fasciitis. The patient also has ongoing knee issues, especially his right knee from his previous surgery. He is considering retiring next May and believes that his pain will subside significantly when he is not walking up stairs and ladders. He does report that on the weekends his pain does decrease. The patient reports he was caring for his granddaughter. Most recently, he did not carry the bags that pushed the golf cart. By the end of the 18 hole, he was very tired and his pain had significantly increased. He did enjoy spending time with his granddaughter who did when first placed in the term. Today, the patient would like renewal of his gabapentin, meloxicam and Oxycodone. ALLERGIES: AMLODIPINE, CRESTOR, PENICILLIN, EXFORGE, AND NUCYNTA. MEDICATIONS: Oxycodone 5/325 t.i.d. p.r.n., gabapentin 300 mg b.i.d., meloxicam, Zestril, Ambien, Bystolic and fish oil. PQRS: 1. He has a history of osteoarthritic issues in his knees. Denies any rheumatoid arthritis. 2. Height is 6 feet, weight is 247. BMI is 33. 3. Vital signs; blood pressure 157/92, pulse is 51, respirations 18, oxygen sat is 97%. 4. Pain score is 6/10. [address] [address] PAIN MANAGEMENT CONSULTATION Name: JASON NICOLAS Room #: REG [facility] Elías#: [id number] Admission: 08/30/20 Attend Phys: Ophelia Chun Discharge: Date of : 56 Report #: [id number] 5. Denies dizziness. Does not need help walking, has not fallen in the last 3 months. 6. The patient is not on any blood thinners, but does have a history of hypertension. 7. Opioid therapy is greater than 6 weeks; therefore, an opioid signed contract is on the chart. 8. Risk assessment is low. Functional assessment is 45/70. 9. Recreational drug use, he denies. He is a former smoker and does not drink alcohol. According to the prescription monitoring system, he is filling appropriately in a timely fashion, morphine mEq 22 MME's according to the CDC guidelines. There is a urine drug screen on the chart and we will recheck this at his next appointment. PHYSICAL EXAMINATION: GENERAL: This is alert and orientated 60-year-old gentleman who appears his stated age, rating his current pain score today at 6/10. HEENT: Normocephalic and atraumatic. Extraocular muscles are intact. He is wearing a mask. His speech is fluent. EXTREMITIES: No clubbing, no cyanosis, no edema. MUSCULOSKELETAL: Tenderness in the distal portion of his calcaneus of the right foot. No edema noted today. Tenderness also along the lateral aspect of his right knee without edema. Lower extremity strength is symmetrical at 5/5. ASSESSMENT: 1. Bilateral knee pain, status post right knee arthroplasty. 2. Plantar fasciitis, ongoing bilateral foot pain, right greater than left. 3. Chronic intractable pain. 4. Complicated medical management utilizing scheduled opioid medications. We reviewed the fact that opiate medications are being used to provide analgesia adequate to support activities of daily living, not attempting to achieve a specific pain score on the 0-10 Visual Analog Scale. The current opiate medications are providing sufficient analgesia to allow the patient to participate in activities of daily living. The patient is not exhibiting any aberrant behavior suggestive of drug diversion. The patient is not having any adverse reactions to medications. The patient is not suffering from daytime somnolence or mental acuity changes. The patient is managing opiate-induced constipation with appropriate ayju-jvq-hjdulbr agents and dietary considerations. The patient was counseled on concern for caution with operating a motor vehicle while using opiate medications. PLAN: 1. We discussed treatment options with the patient today. The patient finds the gabapentin helpful in reducing some of his neuropathic pain in his right [facility] [address] [place] [address] PAIN MANAGEMENT CONSULTATION Name: JASON NICOLAS Room #: REG [facility].#: [id number] Admission: 08/30/20 Attend Phys: Ophelia Chun Discharge: Date of : 56 Report #: [id number] foot, though he does occasionally wake with pain in the middle of the night. We did discuss changing the times that he takes his gabapentin from 4-8:00 p.m. and see if this is more beneficial or taking both of his pain or his gabapentin at 4:00 p.m. upon arriving home from work, allowing time for him to work prior to going to sleep at night. The patient will try to adjust this time and see which is most beneficial for him. Scripts will be sent electronically for gabapentin 300 mg #60 with 2 refills. 2. The patient feels his oxycodone is beneficial in decreasing his pain allowing him to be as active as possible with his job, will continue his oxycodone 5 mg #90 sending this electronically by Dr. Mike Lundberg for today, four and week supply. We will also continue his meloxicam. The patient takes this one time a day and has no GI discomfort with his medication. Time spent with the patient in consultation, reviewing recent studies and clinical notes and physician reports, physical examination and correlation of findings, medical documentation to determine possible treatment options 15 minutes. Time spent in preparation for appointment reviewing prescription monitoring reports, reviewing previous records and current medications 5 minutes. Time spent preparing and sending electronic prescriptions with collaborating physician, Dr. Mike Lundberg and documentation of visit and plan of treatment 5 minutes. Total time spent 25 minutes. HUMBERTO Nguyen/CINDY <ELECTRONICALLY SIGNED> By: Ophelia Chun 08/31/20 0853 [id number] [id number] Ophelia Chun /nt
== END ==
LOC: PAIN 06:59
PROVIDERS: ATTEND Clinical Nurse Specialist Adult Health
DX: M25.561 Pain in right knee (principal); M25.562 Pain in left knee; G89.4 Chronic pain syndrome; M79.671 Pain in right foot; M79.672 Pain in left foot; Z79.891 Long term (current) use of opiate analgesic; Z79.899 Other long term (current) drug therapy

== ENCOUNTER → 2020-11-23 | Outpatient (CLI) | payer OTHER ==
[~2020-11-23] VITALS: Ht 182.9 cm; Wt 112.0 kg
[~2020-11-23] MED LIST changes: +ARTHRITIS PAIN100 GM TOP
[2020-11-23 10:29] VITALS: BP 157/91
--- NOTE | 2020-11-23 10:32 | NUR ---
Pain Clinic Assessment: 1. History of Osteoarthritis: KNEES History of Rheumatoid Arthritis: Not Applicable 2. Height: 6 ft. 0 in. 182.9 cm. Weight: 247.0 lb. oz. 112.039 kg. Patient's BMI: 33.5 3. Vital Signs: BP: 157/91 Pulse: 64 Resp: 18 Temp: 02 Sat: 97 ECG Mon: 4. Pain Intensity: 7 5. Fall Risk: Dizziness: N Needs help standing or walking: N Fallen in the last 3 months: N Fall risk comments: 6. Patient on Blood Thinner: None 7. History of Hypertension: Y 8. Opioid Therapy greater than 6 weeks: Y Opiate Contract Signed: 11/01/15 9. Risk Assessment Tool Provided: 0/LOW 10. Functional Assessment Tool: 45/70 11. Recreational Drug Use: Never Drug Type: Tobacco Use: Former Smoker Tobacco Type: Amount or Packs/day: How Many Years: Alcohol Use: No Frequency: Quant:
--- NOTE | 2020-11-24 08:36 | HPC ---
[facility] [address] [place] [address] PAIN MANAGEMENT CONSULTATION Name: JASON NICOLAS [facility] [id number] Admission: 11/23/20 Attend Phys: Ophelia Chun Discharge: Date of : 56 Report #: [id number] THIS REPORT FOR: cc: Maynor Vilchis David J. DO Hocker, Amanda CNS ~ cc: Maynor Vilchis DO, James E. Johnson, DO DATE OF SERVICE: 11/23/2020 CHIEF COMPLAINT: Bilateral knee pain, post total knee arthroplasty and bilateral foot pain. HISTORY OF PRESENT ILLNESS: This is a pleasant 60-year-old gentleman who returns to the pain clinic today for renewal of his medications. Today, the patient is complaining of significant foot pain that he describes as a burning sensation as well as bilateral knee pain. He reports that his activities at work do cause him significant pain in his knees. He does report his knee pain is almost as significant in his left knee as it was prior to his knee replacement. Unfortunately, he does report he is not able to retire until sometime next year and is wondering if we have any alternatives for him. The patient does report utilizing his gabapentin after he is off work to aid in his burning sensation in his right foot. He does use Voltaren gel on his knees as well as taking his oxycodone on a daily basis. The patient reports taking a burst of prednisone last week when his pain was quite significant. 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 The patient does deny any somnolence or constipation as a result of his medication. ALLERGIES: AMLODIPINE, CRESTOR, PENICILLIN, EXFORGE AND NUCYNTA. MEDICATIONS: Oxycodone 5/325, meloxicam 7.5 mg daily, gabapentin 300 mg b.i.d., lisinopril, Ambien, Bystolic and fish oil. PQRS: 1. He has osteoarthritic issues in his knees and hands. Denies any rheumatoid arthritis. 2. Height is 6 feet, weight is 247. BMI is 33. 3. Vital signs 157/91, pulse is 64, respirations 18, oxygen sat is 97%. 4. Pain score 7/10. 5. Denies dizziness, does not need help walking or standing, has not fallen in the last 3 months. 6. The patient is not on any blood thinners, but does take medicine for hypertension. His opioid therapy is greater than 6 weeks; therefore, an opioid signed contract is on the chart. [address] [address] PAIN MANAGEMENT CONSULTATION Name: FIDENCIOJASON L Room #: REG [facility]IRAG Mckinley#: [id number] Admission: 11/23/20 Attend Phys: Ophelia CHI Chun Discharge: Date of : 56 Report #: [id number] 7. Risk assessment is low. Functional assessment: 45/70. 8. Recreational drug use, he denies. He is a former smoker, does not drink alcohol. According to the prescription monitoring system, the patient is filling appropriately for his medications. His morphine mEq according to the CDC guidelines is 22 MME. We will check a random drug screen on him at his next visit with us. PHYSICAL EXAMINATION: GENERAL: This is alert and orientated, slightly obese, alert, well-developed, well-nourished 60-year-old gentleman who appears his stated age, rating his pain score today at 6/10. HEENT: Normocephalic, atraumatic. Extraocular eye muscles are intact. Mucous membranes are moist. He is wearing a mask. EXTREMITIES: No clubbing, no cyanosis. Slight edema in his left knee and hands bilaterally. MUSCULOSKELETAL: He has tenderness in the distal portion of his calcaneus of the right foot. Tenderness along the lateral aspect of his right knee with slight edema. Lower extremity strength is symmetrical at 5/5. He has tenderness in his hands bilaterally as well. He has an antalgic gait. ASSESSMENT: 1. Bilateral knee pain status post right knee arthroplasty. 2. Plantar fasciitis ongoing bilateral foot pain, right greater than the left. 3. Chronic intractable pain. 4. Osteoarthritis. 5. Complicated medical management utilizing scheduled opioid medications. PLAN: 1. We discussed treatment options with the patient today. The patient is having increasing pain, especially in his knees since his job requires significant use of ladders. He has been using Voltaren gel and I encouraged him to use this up to three times a day to see if it is beneficial in decreasing his knee and hand pain. 2. We have also discussed increasing his meloxicam from 7.5 mg once a day to 7.5 mg twice a day on as needed basis. I instructed him he has a flare, he may take it twice a day and then decrease back to once a day due to him having one kidney. He does report having normal kidney function though. We also encouraged him to take this medication with food. Scripts will be sent electronically for meloxicam and Voltaren gel. 3. We did consider increasing his gabapentin slightly, but will make one change at a time. He will continue to take 2 tablets a day, but taking his first dose prior to leaving work and then one at bedtime. In the future, we may need to increase this to 3 tablets a day. 4. We will continue on his oxycodone , #90. [facility] [address] [place] [address] PAIN MANAGEMENT CONSULTATION Name: JASON NICOLAS Room #: REG [facility].#: [id number] Admission: 11/23/20 Attend Phys: Ophelia Chun Discharge: Date of : 56 Report #: [id number] 5. The patient will return in 3 months for medication management, but we may increase his gabapentin over the phone if he does call with increasing pain. Time spent on the patient in consultation, reviewing recent studies and clinical notes and physician reports, physical examination and correlation of findings and medical documentation to determine possible treatment options, 17 minutes. Time spent with the patient in preparation for appointment reviewing prescription monitoring reports, reviewing previous records and current medications, 5 minutes. Time spent preparing and sending electronic prescriptions with collaborating physician, Dr. Mike Lundberg, and documentation of visit and plan of treatment, 5 minutes. Total time spent 27 minutes. <ELECTRONICALLY SIGNED> By: Ophelia Chun 11/24/20 0836 1349 [id number] Ophelia Chun /nt
== END ==
LOC: PAIN 09:21
PROVIDERS: ATTEND Clinical Nurse Specialist Adult Health
DX: M25.561 Pain in right knee (principal); M25.562 Pain in left knee; M17.11 Unilateral primary osteoarthritis, right knee; G89.4 Chronic pain syndrome; M19.90 Unspecified osteoarthritis, unspecified site; Z79.891 Long term (current) use of opiate analgesic; Z79.899 Other long term (current) drug therapy

== ENCOUNTER → 2021-02-21 | Outpatient (CLI) | payer OTHER ==
[~2021-02-21] VITALS: Ht 180.3 cm; Wt 112.9 kg
--- NOTE | ~2021-02-21 | HPC ---
[facility] [address] [place] [address] PAIN MANAGEMENT CONSULTATION Name: JASON NICOLAS Room #: [facility] Elías#: [id number] Admission: 02/21/21 Attend Phys: Ophelia Chun Discharge: Date of : 56 Report #: [id number] THIS REPORT FOR: cc: Maynor Vilchis David J. DO Hocker, Amanda CNS ~ cc: Maynor Vilchis DO, James E. Johnson, DO DATE OF SERVICE: 02/21/2021 CHIEF COMPLAINT: Bilateral knee pain, post total knee arthroplasty and chronic foot pain. HISTORY OF PRESENT ILLNESS: This is a pleasant 60-year-old gentleman as you know, continues to have ongoing pain in his knees. He has had significant osteoarthritis with 1 total knee replacement. He does continue to have pain in his right knee as well. He continued to work and trying to put off that knee replacement until after he retires, hopefully next year. He also has ongoing foot pain, especially in his right foot. Today, he is reporting more pain in his left knee at a rate of 4/10. Walking, standing, climbing ladders, it is bothersome and aggravates his knees. When he returns home in the evening, he takes his gabapentin and his oxycodone as well as utilizing ice and that is beneficial in helping decrease his pain. The patient does take meloxicam 1 tablet a day and finds that beneficial in helping some of his osteoarthritic issues as well. ALLERGIES: AMLODIPINE, CRESTOR, PENICILLIN, EXFORGE AND NUCYNTA. PQRS: 1. He has osteoarthritis affecting his knees and hands. Denies any rheumatoid arthritis. Height is 5 feet 11 inches, weight is 249. BMI is 34. 2. Vital signs: Blood pressure 159/90, pulse is 53, respirations 18, the oxygen sat is 98%. 3. Pain score is 4/10. 4. Denies dizziness, does not need help walking or standing, has not fallen in the last 3 months. 5. The patient is not on any blood thinners, but does take medicine for hypertension. 6. Opioid therapy is greater than 6 weeks; therefore, an opioid signed contract is on the chart. 7. Risk assessment is low. Functional assessment is 45/70. 8. Recreational drug use, he denies. He is a former smoker and does not drink alcohol. According to the prescription monitoring system, the patient is filling appropriately in a timely fashion. His morphine mEq according to the CDC is 24 MMEs. We will collect a random drug screen on this patient today and he reports [address] [address] PAIN MANAGEMENT CONSULTATION Name: JASON NICOLAS Room #: [facility] Elías#: [id number] Admission: 02/21/21 Attend Phys: Ophelia Chun Discharge: Date of : 56 Report #: [id number] taking his medications this morning. PHYSICAL EXAMINATION: GENERAL: This is alert and orientated, slightly obese, well-developed, well-nourished 60-year-old gentleman who appears his stated age, rating his current pain score today at 4/10. HEENT: Normocephalic, atraumatic. Extraocular eye muscles are intact. ____ IMPRESSION: 1. Status post right knee arthroplasty. 2. Plantar fasciitis with ongoing bilateral foot pain. 3. Chronic intractable pain. 4. Osteoarthritis. 5. Complicated medical management utilizing scheduled opioid medications. PLAN: 1. We discussed treatment options with the patient today. We will continue him on his oxycodone 5/325. The patient takes up to 3 tablets a day and does find this beneficial, especially keeping him active at work and allowing him to function well at work. Three months' scripts will be sent electronically by Dr. Mike Lundberg. 2. We will continue him on his gabapentin. He is taking 1 tablet about 5 in the afternoon and 1 tablet at bedtime. He finds this has been working well for him since he was having side effects of sleepiness when taking it in the morning. Scripts will be sent electronically for this medication for #60 with 2 refills. 3. The patient does continue on the meloxicam, mostly he is only taking 1 tablet. He does suffer from some kidney issues. On the most painful days, he may take 2 tablets and then decrease this again the next day. No scripts needed for this medication today. 4. The patient has submitted a urine drug screen. By: [id number] Ophelia Chun /elder
[2021-02-21 10:23] VITALS: BP 159/90
--- NOTE | 2021-02-21 10:25 | NUR ---
Pain Clinic Assessment: 1. History of Osteoarthritis: KNEES History of Rheumatoid Arthritis: Not Applicable 2. Height: 5 ft. 11 in. 180.3 cm. Weight: 249.0 lb. oz. 112.946 kg. Patient's BMI: 34.7 3. Vital Signs: BP: 159/90 Pulse: 53 Resp: 18 Temp: 02 Sat: 98 ECG Mon: 4. Pain Intensity: 4 5. Fall Risk: Dizziness: N Needs help standing or walking: N Fallen in the last 3 months: N Fall risk comments: 6. Patient on Blood Thinner: None 7. History of Hypertension: Y 8. Opioid Therapy greater than 6 weeks: Y Opiate Contract Signed: 11/01/15 9. Risk Assessment Tool Provided: 0/LOW 10. Functional Assessment Tool: /70 11. Recreational Drug Use: Never Drug Type: Tobacco Use: Former Smoker Tobacco Type: Amount or Packs/day: How Many Years: Alcohol Use: No Frequency: Quant:
== END ==
LOC: PAIN 07:03
PROVIDERS: ATTEND Clinical Nurse Specialist Adult Health
DX: M25.561 Pain in right knee (principal); M25.562 Pain in left knee; M79.671 Pain in right foot; M79.672 Pain in left foot; G89.29 Other chronic pain; M19.90 Unspecified osteoarthritis, unspecified site; Z96.651 Presence of right artificial knee joint; Z88.8 Allergy status to other drugs, medicaments and biological substances; Z88.0 Allergy status to penicillin